=== PATIENT | male | born 1960 | race Caucasian/White ===

== ENCOUNTER 2025-08-14 17:27 | Inpatient (IN) | payer OTHER, SELFPAY ==
[2025-08-14] VITALS (11 sets, daily range): BP systolic 112–137; BP diastolic 78–89; PULSE 69–81; RESP 12–20; TEMP 36.4–37.1; O2SAT 94–99; BMI 28.3
--- NOTE | ~2025-08-14 | CT_ITS ---
CT brain wo con HISTORY:ascending paralysis COMPARISON: None. TECHNIQUE: Axial images were obtained of the head without intravenous contrast. FINDINGS: No acute intracranial hemorrhage, mass effect or midline shift. No extra-axial fluid collections. The calvarium is intact. Visualized paranasal sinuses and mastoid air cells are clear. IMPRESSION: No acute intracranial hemorrhage or extra axial fluid collections. All CT scans at this facility are performed using low dose modulation techniques as appropriate to perform exam including the following: automated exposure control; use of iterative reconstruction technique; adjustment of the mA and/or kV according to patient size (this includes techniques or standardized protocols for targeted exams where dose is matched to indication/reason for exam). Reviewed, dictated and finalized at location S. IMPRESSION: No acute intracranial hemorrhage or extra axial fluid collections. All CT scans at this facility are performed using low dose modulation techniqu es as appropriate to perform exam including the following: automated exposure c ontrol; use of iterative reconstruction technique; adjustment of the mA and/or kV according to patient size (this includes techniques or standardized protocol s for targeted exams where dose is matched to indication/reason for exam).
--- NOTE | ~2025-08-14 | XR_ITS ---
EXAMINATION: XR lumbar puncture diagnostic DATE: 08/17/2025 13:34 INDICATION: Numbness weakness and tingling. Assess for infection. TECHNIQUE: The procedure including the risks and benefits was discussed with the patient. Risks discussed included spinal headache, cerebrospinal fluid leak, bleeding, and infection. The patient understood the risks and agreed to proceed. A timeout was performed to verify the patient's name, date of , and procedure to be performed. The skin overlying the L2-L3 level was prepped and draped in usual sterile fashion. Subcutaneous 1% lidocaine was used for local anesthesia. A 22 gauge spinal needle was advanced under fluoroscopic guidance. The needle was removed and the entry site was cleaned and dressed. There were no immediate complications. A total of 2 fluoroscopic images and one crosstable lateral radiograph were obtained. The amount of fluoroscopy time used during this procedure was 0.2 minutes. Total DAP was 12.596 mGycm^2. There were no immediate complications. FINDINGS: Real-time fluoroscopy demonstrates the needle at the L2-L3 level. Opening pressure was 14 cm water. (Normal range is variably defined as 6-20 cm water and up to 25 cm water in obese patients. Pressure >25 cm water is one of the modified Dandy criteria for idiopathic intracranial hypertension). There was an initial subtle pinkish tinge to the initial couple millimeter of fluid with subsequently clear, colorless fluid suggesting traumatic tap. 16.5 mL of fluid was collected in 4 tubes. IMPRESSION: 1. Successful fluoro-guided lumbar puncture with normal opening pressure of 14 cm water. Reviewed, dictated and finalized at location A.
--- NOTE | ~2025-08-14 | MR_ITS ---
. EXAMINATION: MR thoracic spine wo con DATE: 08/15/2025 14:55 INDICATION: Upper and lower extremity weakness TECHNIQUE: Magnetic resonance imaging (MRI) of the thoracic spine was performed without intravenous contrast. Sagittal localizer T1-weighted FSE of the cervicothoracic spine was obtained. Thoracic spine sequences included sagittal T2-weighted FSE, sagittal T1-weighted SE, Sagittal T2-weighted FS FSE, and axial T2-weighted FSE. COMPARISON: None FINDINGS: Evaluation mildly limited by mild motion artifact on the sagittal sequences moderate to severe motion artifact on the axial sequences. Alignment is normal. Chronic appearing mild anterior wedging at T7. Remaining vertebral body heights are normal. T1 and T2 hyperintense hemangioma at L1 with characteristic appearance with thickened vertical trabecula evident on CT dated 03/01/2013. Additional smaller T1 and T2 hyperintense hemangioma at T7. No pathologic marrow replacing process. Mild multilevel disc height loss at T5-T6 through T8-T9. There is normal spinal cord signal. The conus terminates at L1-L2. The thoracic discs do not extend beyond the endplate margins. There is no central canal stenosis. There is multilevel thoracic facet osteoarthritis, severe at a few levels bilaterally in the lower cervical spine with contributes to moderate neural foraminal stenosis on the left at T7-T8 hand and the right at T11-T12. Or scattered additional mild neural foraminal stenosis at a few levels on the left and right. There is an approximately 2.5 cm T2 hyperintense nodule in the right lower lobe. IMPRESSION: 1. Mild thoracic spondylosis with no central canal stenosis. 2. Indeterminate 2.5 cm mass in the right lower lobe. Recommend chest CT for further evaluation. Reviewed, dictated and finalized at location A. IMPRESSION: 1. Mild thoracic spondylosis with no central canal stenosis. 2. Indeterminate 2.5 cm mass in the right lower lobe. Recommend chest CT for fu rther evaluation.
--- NOTE | ~2025-08-14 | MR_ITS ---
EXAMINATION: MR lumbar spine wo con DATE: 08/15/2025 14:53 INDICATION: Upper and lower extremity weakness, numbness and tingling TECHNIQUE: Magnetic resonance imaging (MRI) of the lumbar spine was performed without intravenous contrast. Sequences included sagittal T2-weighted FSE, sagittal T2-weighted FS FSE, sagittal T1-weighted FSE, axial T1-weighted FSE and axial T2-weighted FSE. COMPARISON: None FINDINGS: Evaluation moderately limited by varying degrees of motion artifact on all the cord sequences. 8 degrees lumbar dextrocurvature. Sagittal alignment is normal. Vertebral body heights are normal. T1 and T2 hyperintense hemangioma at L1. Mild fibrovascular degenerative endplate changes at the right side of the L1-L2 and L5-S1 disc spaces. Moderate disc height loss at L4-L5 and mild disc height loss at L2-L3, L3-L4 and L5-S1. The conus medullaris terminates at L1-L2. There is normal signal in the caudal spinal cord. Paravertebral soft tissues are unremarkable. The following disc levels are specifically discussed: T12-L1: The disc does not extend beyond the endplate margin. There is mild bilateral facet joint osteoarthritis. There is no neural foraminal stenosis. There is no central canal stenosis. L1-L2: Disc is minimally bulging. There is moderate bilateral facet joint osteoarthritis. There is mild bilateral neural foraminal stenosis. There is no central canal stenosis. L2-L3: Disc is mildly bulging. There is moderate left and severe right facet joint osteoarthritis. There is moderate bilateral neural foraminal stenosis. There is mild central canal stenosis. L3-L4: Disc is bulging. There is hypertrophy of the ligamentum flavum. There is moderate to severe bilateral facet joint osteoarthritis. There is moderate bilateral neural foraminal stenosis. There is severe central canal stenosis. L4-L5: Disc is bulging There is severe bilateral facet joint osteoarthritis. There is moderate bilateral neural foraminal stenosis. There is severe central canal stenosis. L5-S1: Disc is bulging. There is moderate left and severe right facet joint osteoarthritis. There is mild left and moderate right neural foraminal stenosis. There is moderate central canal stenosis. IMPRESSION: 1. Moderate lumbar spondylosis with suggestion of severe central canal stenosis at L3-L4 and L4-L5 assessment is however moderately limited by prominent motion artifact particularly on the axial sequences. Reviewed, dictated and finalized at location A. IMPRESSION: 1. Moderate lumbar spondylosis with suggestion of severe central canal stenosis at L3-L4 and L4-L5 assessment is however moderately limited by prominent motio n artifact particularly on the axial sequences.
--- NOTE | ~2025-08-14 | MR_ITS ---
EXAMINATION: MR cervical spine wo con DATE: 08/15/2025 14:56 INDICATION: Upper and lower extremity weakness, numbness and tingling TECHNIQUE: Magnetic resonance imaging (MRI) of the cervical spine was performed without intravenous contrast. Sequences included sagittal T2-weighted FSE, sagittal T2-weighted FS FSE, sagittal T1-weighted FSE, axial MERGE and axial T2- weighted FSE. COMPARISON: None FINDINGS: Evaluation moderately limited by motion artifact brain to some degree on all sequences including repeated sequences with varying from mild to severe. Straightening of the normal cervical lordosis. No spondylolisthesis. Vertebral body heights are normal. Mild disc height loss at C4-C5, C5-C6 and C6-C7 with multilevel facet degenerative endplate changes at C5-C6 and C6-C7. Marrow signal is otherwise unremarkable. There is focal increased cord signal at C5-C6 where there is severe central canal stenosis which will be further detailed below. Cervical soft tissues are unremarkable. The following disc levels are specifically discussed: C2-C3: The disc does not extend beyond the endplate margin. There is mild left uncovertebral joint osteoarthritis. There is moderate right and severe left facet joint osteoarthritis. There is mild neural foraminal stenosis. There is no central canal stenosis. C3-C4: Mild left foraminal zone disc protrusion. There is mild left and moderate right uncovertebral joint osteoarthritis. There is moderate left and severe right facet joint osteoarthritis. There is altered left and moderate right neural foraminal stenosis. There is no central canal stenosis. C4-C5: Disc is bulging. There is moderate left and severe right uncovertebral joint osteoarthritis. There is mild left and severe right facet joint osteoarthritis. There is mild left and moderate right neural foraminal stenosis. There is moderate central canal stenosis measuring 9 mm AP in the mid sagittal plane, indention of the right ventral surface of cord and near complete effacement of surrounding CSF signal. C5-C6: Disc is bulging, eccentric to the right. There is severe bilateral uncovertebral joint osteoarthritis. There is mild bilateral facet joint osteoarthritis. There is mild left and moderate right neural foraminal stenosis. There is severe central canal stenosis measuring 7 mm AP in the mid sagittal plane with effacement of the surrounding CSF signal. There is deep formation of the cord with compression of the right side of the cord which forms an acute angle at the lateral recess and with lateral bulging of the left side of the cord into the entrance to the left neural foramen. There is associated focal increased cord signal. C6-C7: Disc is bulging. There is moderate right and severe left uncovertebral joint osteoarthritis. There is moderate bilateral facet joint osteoarthritis. There is mild to moderate right and moderate left neural foraminal stenosis. There is moderate central canal stenosis measuring 8 mm AP in the mid sagittal plane with effacement of the majority the surrounding CSF signal. C7-T1: The disc does not extend beyond the endplate margin. There is no uncovertebral joint osteoarthritis. There is mild bilateral facet joint osteoarthritis. There is no neural foraminal stenosis. There is no central canal stenosis. IMPRESSION: 1. Mild to moderate cervical spondylosis most notable for disc bulge with severe central canal stenosis at C5-C6 with associated focal increased cord signal consistent with secondary myelopathy. Reviewed, dictated and finalized at location A. IMPRESSION: 1. Mild to moderate cervical spondylosis most notable for disc bulge with sever e central canal stenosis at C5-C6 with associated focal increased cord signal c onsistent with secondary myelopathy.
--- NOTE | ~2025-08-14 | MR_ITS ---
EXAMINATION: MRI SACRUM W/O CONTRAST DATE: 08/15/2025 14:55 INDICATION: Incontinence and bilateral upper and lower limb weakness, numbness and tingling TECHNIQUE: Magnetic resonance imaging (MRI) of the sacrum and coccyx was performed without intravenous contrast. Sequences included sagittal PD-weighted FSE; oblique axial T1-weighted FSE and T2-weighted FS FSE; oblique coronal T2- weighted FSE, T1-weighted FSE and T2-weighted FS FSE. COMPARISON: CT dated 03/01/2013 FINDINGS: Evaluation is significantly limited by varying degrees of motion artifact to secondary on all sequences including multiple repeated sequences. Moderate lower lumbar spondylosis. See separate lumbar spine MR for further detail. Bone marrow signal is unremarkable with no pathologic marrow replacing process. Moderate osteoarthritis at the bilateral sacroiliac joints. Mild to moderate osteoarthritis at the bilateral hip joints with prominent subarticular cystlike change at the anterosuperior left acetabulum and mild subarticular edema-like signal change at the anterosuperior right acetabulum. No abnormal masses or pathologically enlarged lymphadenopathy in the visualized pelvis. No free fluid in the pelvis. IMPRESSION: 1. Mild to moderate degenerative skeletal changes in the lower lumbar spine and at the bilateral hip and sacroiliac joints. Reviewed, dictated and finalized at location A.
--- NOTE | ~2025-08-14 | MR_ITS ---
EXAMINATION: MR brain/brain stem wo/w con DATE: 08/15/2025 14:52 INDICATION: Weakness, numbness and tingling TECHNIQUE: Magnetic resonance imaging (MRI) of the brain and brainstem was performed without and with 20 mL Multihance intravenous contrast. Sequences included sagittal and axial T1-weighted SE, axial diffusion-weighted FS SE, axial T2*-weighted GRE, axial T2-weighted FLAIR, and axial T2-weighted FSE. Postcontrast axial, sagittal and coronal T1-weighted SE was obtained. Apparent diffusion coefficient (ADC) maps were created. COMPARISON: None. FINDINGS: There are no areas of restricted diffusion to suggest acute infarction. No intracranial hemorrhage or abnormal intracranial mass lesion. There are a few scattered tiny foci of nonspecific increased T2-weighted signal intensity in the cerebral white matter, predominantly involving the deep and periventricular white matter which is well within normal limits for age and likely sequela of chronic small vessel ischemic disease. There are no intraparenchymal signal abnormalities seen on the other pulse sequences. The ventricles are symmetric and normal in size. There are no abnormal extra-axial fluid collections. Flow voids are seen in the cerebral arteries on the T2-weighted sequences consistent with their expected patency. Visualized orbits and soft tissues are unremarkable. Mild to moderate mucosal thickening the paranasal sinuses most prominent in the bilateral ethmoid sinuses. There are no areas of abnormal enhancement on the post contrast images. IMPRESSION: 1. Normal aging brain. No acute intracranial process or abnormally enhancing brain lesions. Reviewed, dictated and finalized at location A. IMPRESSION: 1. Normal aging brain. No acute intracranial process or abnormally enhancing br ain lesions.
--- NOTE | ~2025-08-14 | MR_ITS ---
EXAMINATION: MR cervical spine wo con DATE: 08/16/2025 12:10 INDICATION: Repeat assessment for bilateral upper and lower extremity weakness, numbness and tingling with motion artifact on MRI imaging from one day prior. TECHNIQUE: Magnetic resonance imaging (MRI) of the cervical spine was performed without intravenous contrast. Sequences included sagittal T2-weighted FSE, sagittal fluid sensitive FSE STIR, sagittal T1-weighted FSE, axial MERGE and axial T2-weighted FSE. COMPARISON: 08/15/2025 FINDINGS: There is a moderate to large amount of motion artifact on all sequences on the current study including multiple repeated sequences. This renders assessment on the current study significantly more limited than on the prior study. Of note there is increased signal between the C5 and C6 spinous processes as can also be seen on the prior study which is of indeterminate etiology or significance. No other findings on the current study contradictory to the previous noted findings but no significant new information provided due to the motion artifact. IMPRESSION: 1. Increased signal between the C5 and C6 spinous processes which was present but noted on the prior study. No other additional useful additional information provided by the current study over the prior study due to a greater degree of moderate to severe motion artifact on all sequences including multiple repeated sequences. Reviewed, dictated and finalized at location A. IMPRESSION: 1. Increased signal between the C5 and C6 spinous processes which was present b ut noted on the prior study. No other additional useful additional information provided by the current study over the prior study due to a greater degree of m oderate to severe motion artifact on all sequences including multiple repeated sequences.
--- NOTE | 2025-08-14 17:36 | PC.NURSE ---
Pt. states he is unable to stand for a weight.
--- NOTE | 2025-08-14 19:12 | ECG_ITS ---
Test Date: 2025-08-14 19:30:57 Measurements Intervals Humphrey Rate: 74 P: 49 MS: 184 QRS: 71 QRSD: 173 T: 44 QT: 412 QTc: 460 Interpretive Statements SINUS RHYTHM RIGHT BUNDLE BRANCH BLOCK BASELINE ARTIFACT- I, II, III, AVR, AVL, AVF, V3-V4 ABNORMAL ECG No previous ECG available for comparison Electronically Signed On 08-15-2025 05:08:51 CDT by Adolph Arevalo D.O.
--- NOTE | 2025-08-14 19:35 | PC.NURSE ---
pt states he was bitten by unknown bugs over a week ago. pt states he is now having bilateral leg paralysis due to bug bites all over his back. pt states he is now having leg twitches that happen every 23 seconds. pt stated popped bug bites on back that had yellow pus come out of them. pt stated he is not able to walk any longer. This RN asked pt what the rash was on his lower abdomen, pt stated I don't like hair on my body so I pluck each and every hair out of my stomach, i also shave my armpits.
[2025-08-14 19:39] LABS: Hematocrit 50.8 % (42.0-52.0); Hemoglobin 16.5 g/dL (14.0-18.0); Immature Granulocyte Percent A 0.2 % (0-0.5); Lymphocytes Absolute Auto 1.87 K/mm3 (0.9-3.2); Mean Corpuscular HGB Conc 32.5 g/dl (32-36); Mean Corpuscular Hemoglobin 30.7 pg (26-34); Mean Corpuscular Volume 94.6 fl (80-100); Nucleated Red Blood Cells Absolute Auto 0.000 K/mm3 (0.0-0.012); Nucleated Red Blood Cells Perc 0.0 % (0.0-0.2); Platelet Count Result 265 k/mm3 (150-375); Red Blood Count 5.37 M/mm3 (4.6-6.20); White Blood Count 9.7 K/mm3 (4.5-10.0)
[2025-08-14 19:51] LABS: Alanine Aminotransferase 36 U/L (6-50); Albumin Level 4.1 g/dL (3.5-5.1); Alkaline Phosphatase 83 U/L (38-126); Anion Gap 4 mmol/L (4-12); Aspartate Amino Transferase 44 U/L (17-59); Bilirubin,Total 0.8 mg/dL (0.2-1.3); Blood Urea Nitrogen 27 mg/dL (9-20); CRP 3.2 mg/dL (<1.0); Calcium 9.3 mg/dL (8.4-10.2); Carbon Dioxide 28 mmol/L (22-30); Chloride 106 mmol/L (98-107); Estimated CRCL calculation 85 ml/min; Estimated Glomerular Filt Rate > 60; Glucose 92 mg/dL (65-110); Magnesium 2.2 mg/dL (1.6-2.3); Potassium 4.2 mmol/L (3.4-5.0); Sodium 138 mmol/L (137-145); Total Protein 7.3 g/dL (6.3-8.2)
--- NOTE | 2025-08-14 19:54 | ED.SKABFB ---
HPI - Skin/Abscess/Foreign Bdy General Chief complaint: Skin/Abscess/Foreign Body Stated complaint: bit by something, whole body is numb Time Seen by Provider: 08/14/25 19:06 History of Present Illness HPI narrative: 65-year-old male presenting to the emergency department with weakness and numbness going from his toes up towards his back and progressively escalating. Patient states that he has had progressive weakness and difficulty walking. He has stumbled and fallen multiple times this past week and now having significant difficulty getting around. Patient states he feels like his legs are giving out on him and almost like weight now. Presents via walk-in triage needing a wheelchair to get around. States that approximately 2-3 weeks ago he was outside and found a tick on his thigh that he removed and felt like he did not get the full head removed so he went in with tweezers to trying get this out. He has also had some bug bites over his extremities prior to that and had a fever of unknown origin. No diarrheal illness. No upper respiratory infection recently. Complaining presently of weakness and trouble coordinating his legs as well as a mild headache. No traumatic injuries to the head or neck. No history of any cardiac anomalies, no prior strokes. Does not take any medications. Otherwise healthy according to the patient. Denies any recent new medications or supplements. Related Data Home Medications ?Medication ?Instructions ?Recorded ?Confirmed ?Last Taken ?Type No Home Medications 08/14/25 08/14/25 Unknown History Allergies Allergy/AdvReac Type Severity Reaction Status Date / Time poison cesar extract Allergy Severe Anaphylaxis Verified 08/14/25 23:02 Review of Systems Review of Systems: As reviewed above in HPI Exam Narrative: GENERAL: [Well-appearing, well-nourished, and in no acute distress.] HEAD: [Normocephalic, atraumatic.] EYES: [PERRLA and EOMI.] ENT: Nares clear, no rhinorrhea or epistaxis. Mucous membranes moist. NECK: Supple. CHEST: [Clear to auscultation. No respiratory distress.] HEART: [Regular rate and rhythm]. No murmur heard. [Normal peripheral pulses.] ABDOMEN: [Soft, nondistended], [nontender], [No rigidity or guarding] EXTREMITIES: Normal range of motion. [No edema.] SKIN: Warm, dry, no rash. NEURO: Ataxia noted in bilateral lower extremities. No ataxia in the arms. Strength in the arms is 5/5. Strength in the bilateral lower extremities is 4/5 bilaterally and symmetric. Decreased sensation up to the hip but no definite sensory level. Upper extremities with full sensation. No facial droop or asymmetry. Normal speech pattern. Extraocular movements are intact, pupils equal reactive. PSYCH: [Normal mood and affect.] Course Vital Signs Vital signs: Vital Signs Temperature 36.5 C 08/14/25 17:32 Pulse Rate 77 08/14/25 17:32 Respiratory Rate 16 08/14/25 17:32 Blood Pressure 137/86 08/14/25 17:32 Pulse Oximetry 96 08/14/25 17:32 Oxygen Delivery Room Air 08/14/25 17:32 Temperature 37.1 C 08/14/25 19:13 Pulse Rate 71 08/14/25 22:53 Respiratory Rate 16 08/14/25 22:53 Blood Pressure 124/82 08/14/25 22:53 Pulse Oximetry 98 08/14/25 22:53 Oxygen Delivery Room Air 08/14/25 19:13 Procedures Lumbar Puncture Lumbar Puncture #1: Lumbar Puncture Date: 08/14/25 Lumbar Puncture Time: 21:00 Time Out Performed: Yes Patient Position: right lateral decubitus Skin Prep: Povidone-Iodine 1% Anesthetic: lidocaine 1% Amount of anesthesia used (mL): 3 Spinal Needle Gauge: 20G Interspace Used: L3-L4 Spinal Fluid: unable to obtain Complications: unable to obtain CSF Additional Comments: Multiple attempts with several different spinal needles with appreciable apparent entry into the appropriate space without return of any CSF fluid. No bleeding. Attempted L4-L5 level and L3-L4 level without any success. No success. Patient did tolerate this well without any further neurological deficits or bleeding or any complication apparent. MDM - Skin/Abscess/Foreign Bdy MDM Narrative Medical decision making narrative: 65-year-old male presenting to the emergency department with weakness and numbness going from his toes up towards his back and progressively escalating. Patient states that he has had progressive weakness and difficulty walking. He has stumbled and fallen multiple times this past week and now having significant difficulty getting around. Patient states he feels like his legs are giving out on him and almost like weight now. Presents via walk-in triage needing a wheelchair to get around. States that approximately 2-3 weeks ago he was outside and found a tick on his thigh that he removed and felt like he did not get the full head removed so he went in with tweezers to trying get this out. He has also had some bug bites over his extremities prior to that and had a fever of unknown origin. No diarrheal illness. No upper respiratory infection recently. Complaining presently of weakness and trouble coordinating his legs as well as a mild headache. No traumatic injuries to the head or neck. No history of any cardiac anomalies, no prior strokes. Does not take any medications. Otherwise healthy according to the patient. Denies any recent new medications or supplements. Ataxia noted in bilateral lower extremities. No ataxia in the arms. Strength in the arms is 5/5. Strength in the bilateral lower extremities is 4/5 bilaterally and symmetric. Decreased sensation up to the hip but no definite sensory level. Upper extremities with full sensation. No facial droop or asymmetry. Normal speech pattern. Extraocular movements are intact, pupils equal reactive. Patient is hemodynamically stable but has obvious neurological findings on examination combined with his historical features with recent bug bites, tick exposure and febrile illness of unknown etiology differential is broad but does include Lyme disease, gout MRSA syndrome, intra cranial pathology such as stroke, electrolyte abnormalities, dehydration, rhabdomyolysis. Broad workup ordered this time including basic laboratory studies, EKG, CT of the head, Lyme serology and LP studies. Failed to obtain LP after multiple attempts. Patient tolerated well without any complication otherwise. Remains hemodynamically stable. Laboratory studies so far unremarkable. Given patient's acute neurological deficits with concern for Guillain-[place] versus tick-borne illness I discussed the case with the on-call neurologist Dr. Sheila RUCKER. He recommended I start empiric antibiotics and treatment for Lyme and so doxycycline was ordered at this time. Discussed if we should empirically treat for given her a or other potential causes with steroids, IVIG or other treatments and told me to obtain LP this morning with IR and then proceed with treatments based on results rather than empiric starting medications. He recommended I admit to the ICU for respiratory monitoring given progression nature of his neurological function. No current respiratory complaints, dyspnea, heavy breathing or any hypoxemia. Spoke to the jail manager Dr. Keane and the hospitalist Dr. Miles who accepted the patient to the ICU at this time. Medical Records Attestation: I reviewed the patient's medical records. Lab Data Attestation: I reviewed the patient's lab results. 08/14/25 19:32 08/14/25 19:32 Labs: Lab Results 08/14/25 Range/Units 19:32 WBC 9.7 (4.5-10.0) K/mm3 RBC 5.37 (4.6-6.20) M/mm3 Hgb 16.5 (14.0-18.0) g/dL Hct 50.8 (42.0-52.0) % MCV 94.6 (80-100) fl MCH 30.7 (26-34) pg MCHC 32.5 (32-36) g/dl RDW 14.3 (11.5-14.5) % Plt Count 265 (150-375) k/mm3 MPV 10.6 H (7.4-10.4) fl Immature Gran % (Auto) 0.2 (0-0.5) % Neut % (Auto) 66.3 (45.5-73.1) % Lymph % (Auto) 19.4 (18.3-44.2) % Glenn % (Auto) 8.4 (2.6-8.5) % Eos % (Auto) 5.3 H (0-4.4) % Baso % (Auto) 0.4 (0.2-1.2) % Lymph # (Auto) 1.87 (0.9-3.2) K/mm3 Glenn # (Auto) 0.8 H (0.1-0.6) K/mm3 Eos # (Auto) 0.5 H (0-0.3) K/mm3 Baso # (Auto) 0.0 (0.0-0.1) K/mm3 Abs Immat Gran (auto) 0.02 (0.00-0.031) K/mm3 Absolute Neuts (auto) 6.4 (1.3-6.7) K/mm3 Absolute Nucleated RBC 0.000 (0.0-0.012) K/mm3 Nucleated RBC % 0.0 (0.0-0.2) % ESR 3 (0-20) mm/hr Sodium 138 (137-145) mmol/L Potassium 4.2 (3.4-5.0) mmol/L Chloride 106 (98-107) mmol/L Carbon Dioxide 28 (22-30) mmol/L Anion Gap 4 (4-12) mmol/L BUN 27 H (9-20) mg/dL Creatinine 0.83 (0.7-1.3) mg/dL Estim Creat Clear Calc 85 ml/min Estimated GFR > 60 (59 - ) Glucose 92 (65-110) mg/dL Calcium 9.3 (8.4-10.2) mg/dL Magnesium 2.2 (1.6-2.3) mg/dL Total Bilirubin 0.8 (0.2-1.3) mg/dL AST 44 (17-59) U/L ALT 36 (6-50) U/L Alkaline Phosphatase 83 (38-126) U/L Total Creatine Kinase 389 H (55-170) U/L C-Reactive Protein 3.2 H (<1.0) mg/dL Total Protein 7.3 (6.3-8.2) g/dL Albumin 4.1 (3.5-5.1) g/dL Lyme IgG 18 kDa Band Pending Lyme IgG 23 kDa Band Pending Lyme IgG 28 kDa Band Pending Lyme IgG 30 kDa Band Pending Lyme IgG 39 kDa Band Pending Lyme IgG 41 kDa Band Pending Lyme IgG 45 kDa Band Pending Lyme IgG 58 kDa Band Pending Lyme IgG 66 kDa Band Pending Lyme IgG 93 kDa Band Pending Lyme IgG Ab (Immblot) Pending Lyme IgM Ab (Immblot) Pending Lyme IgM 23 kDa Band Pending Lyme IgM 39 kDa Band Pending Lyme IgM 41 kDa Band Pending Discharge Plan Discharge Clinical Impression: Ascending paralysis, Tick bite, Ataxia of both legs Patient Disposition: Still a Patient Condition: Stable
[2025-08-14 20:00] LABS: Creatine Kinase 389 U/L (55-170)
[2025-08-14] MEDS: DOXYCYCLINE IV 100 MG in SODIUM CHLORIDE 0.9% IV 100 ML IVPB (21:46)
[2025-08-15] VITALS (19 sets, daily range): BP systolic 115–168; BP diastolic 74–109; PULSE 59–94; RESP 12–18; TEMP 36.3–36.9; O2SAT 90–99
--- NOTE | 2025-08-15 00:47 | PM.IMHP ---
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 The symptoms started 3 days prior to admission which were acute in onset and severe but the patient was afraid to come into the hospital. His girlfriend is at bedside who helps coordinate history. The patient works around the house a lot, he has been working in the yard with fences recently, he saw a tick on his right thigh 2 weeks prior to admission. He pulled it out but the head was left in his skin. He took a nail file and dug the head of the tick out. Since then, there has been a small rash at the site of the bite. 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 He was falling and getting scratches everywhere, has bug bites everywhere. He is unsure where the weakness or his other symptoms started but eventually it became diffuse. He told ER physician it started in his toes and went upward. He was weak in his legs, his hips, arms. He started to have numbness everywhere, and then tingling and sharp pains all over. Patient has no known prior history, does not take medications. Denies fever, change in vision, shortness of breath, chest pain, nausea or vomiting, abdominal pain, diarrhea, syncope. ER evaluation demonstrated ataxia of bilateral lower extremities. No ataxia in the upper extremities but patient did report he had clumsy fingers. Strength in the arms 5/5, strength in bilateral lower extremities 4-5 bilaterally and symmetric. Decreased sensation up to the hip but no definite sensory level of change. Upper extremities full sensation. No facial droop. Normal speech. Extraocular movements intact. ER evaluation demonstrates a hemodynamically stable male. Afebrile. WBC 9.7, hemoglobin 16.5, ESR 3, platelets 265, BUN 27, serum creatinine 0.83, total CK 389, CRP 3.2 nasal MRSA negative, Lyme serology obtained. CT head without contrast with no acute findings. Administered doxycycline 100 mg IV x1. Fail to obtain LP after multiple attempts. Graduate Studies Dean notify for admission to the ICU. Neurologist contacted from the ER. Recommended LP with radiology in the morning, no administration of IVIG or other treatments to treat possible Guillain-[place] syndrome. Review of Systems Review of Systems: All systems reviewed & are unremarkable except as noted in HPI and below (Subjective) [facility] Family History Family History (Updated 08/14/25 @ 23:55 by Anup Lin RN) Father Acute myocardial infarction Social History Social History Smoking packs per day: 1 Smoking cigarettes per day: 20.0 Smoking status: Current every day smoker Tobacco type: cigarettes Alcohol intake: former Drinks per week: 0 Substance use: current Substance use type: marijuana Last use: 08/13/2025 Lack of Transportation: No Lack of Food: Never True Current Housing: I Have Housing Concerned About Future Housing: No Difficulty Paying Gas/Electric Bills: No Difficulty Paying for Meds: No Currently Unemployed: YES Education: Decline to Answer Difficulty w/ Childcare or Family Care: No Spiritual care concerns: No Meds Home Medications and Allergies Home Medications ?Medication ?Instructions ?Recorded ?Confirmed ?Type No Home Medications 08/14/25 08/14/25 History Allergies Allergy/AdvReac Type Severity Reaction Status Date / Time poison cesar extract Allergy Severe Anaphylaxis Verified 08/14/25 23:53 Vital Signs Vital Signs - 24 hr 08/14/25 17:32 08/14/25 19:13 08/14/25 21:23 Temperature 97.7 F 98.7 F Pulse Rate 77 78 72 Respiratory Rate 16 14 20 Blood Pressure 137/86 134/89 120/78 Pulse Oximetry 96 99 95 Oxygen Delivery Room Air Room Air 08/14/25 21:30 08/14/25 21:31 08/14/25 21:45 Temperature Pulse Rate 75 70 71 Respiratory Rate 12 13 16 Blood Pressure 114/80 128/87 125/87 Pulse Oximetry 94 95 95 Oxygen Delivery 08/14/25 22:00 08/14/25 22:15 08/14/25 22:45 Temperature Pulse Rate 69 74 Respiratory Rate 20 14 Blood Pressure 118/78 112/81 Pulse Oximetry 97 99 95 Oxygen Delivery Room Air 08/14/25 22:53 08/14/25 23:00 08/15/25 00:00 Temperature 97.6 F 97.6 F Pulse Rate 71 81 86 Respiratory Rate 16 19 17 Blood Pressure 124/82 130/82 115/81 Pulse Oximetry 98 94 92 Oxygen Delivery 08/15/25 00:00 Temperature Pulse Rate Respiratory Rate Blood Pressure Pulse Oximetry 92 Oxygen Delivery Room Air Exam Const: General: comfortable and no acute distress Other: A&O x4, pleasant and cooperative HENMT: Mouth: Yes moist mucous membranes Eyes: EOM: EOMs intact bilaterally Other: anisocoria R>L, R iris asymmetric. Both pupils reacted to light. Resp: Effort & Inspection: normal respiratory effort Auscultation: clear to auscultation bilaterally Cardio: Rate: regular rate Rhythm: regular rhythm Heart sounds: no murmurs GI: Inspection: non-distended GI Palp: Yes Soft to palpation and No Tenderness to palpation present (GI) Auscultation: normal bowel sounds : General: Yes bladder normal to palpation Skin: Other: Multiple linear scratch espinoza diffusely, healing. Patient reports this is from falling and getting scratched on fences. Papular rash on the buttocks. Right thigh with 2 small areas of erythema surrounding 2 healing bite espinoza. Neuro: Other: Deep tendon reflexes 2+, normal speech. Strength 4/5 at the hips bilaterally flexion. 5/5 strength at the knees and ankles bilaterally. Bilateral upper arms 5/5 strength. Sensation equal symmetrically to light touch and pinprick and intact. Vascular exam intact. All 4 extremities without ataxia. Tongue and uvula midline. No facial droop. Speech normal. Extrem: Other: Trace pitting edema bilateral lower extremities below the knees. Psych: Mental Status: mental status grossly normal H&P: Results Labs Labs: Short CBC 08/14/25 Range/Units 19:32 WBC 9.7 (4.5-10.0) K/mm3 Hgb 16.5 (14.0-18.0) g/dL Hct 50.8 (42.0-52.0) % Plt Count 265 (150-375) k/mm3 [facility] 08/14/25 19:32 Sodium 138 Potassium 4.2 Chloride 106 Carbon Dioxide 28 BUN 27 H Creatinine 0.83 Glucose 92 Calcium 9.3 Cardiac Enzymes 08/14/25 Range/Units 19:32 Total Creatine Kinase 389 H (55-170) U/L Liver Function 08/14/25 Range/Units 19:32 Total Bilirubin 0.8 (0.2-1.3) mg/dL AST 44 (17-59) U/L ALT 36 (6-50) U/L Alkaline Phosphatase 83 (38-126) U/L Albumin 4.1 (3.5-5.1) g/dL Assessment and Plan Assessment and plan (1) Tick bite: Code(s): W57.XXXA - Bitten or stung by nonvenomous insect and other nonvenomous arthropods, initial encounter Status: Acute (2) Neurological muscle weakness: Code(s): M62.81 - Muscle weakness (generalized) Status: Acute (3) Akathisia: Code(s): G25.71 - Drug induced akathisia Status: Acute (4) Complaint of paresthesia: Code(s): R20.2 - Paresthesia of skin Status: Acute Plan 65-year-old male with PMH tobacco and marijuana abuse, bilateral cataract surgery 2010 with 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 The symptoms started 3 days prior to admission which were acute in onset and severe but the patient was afraid to come into the hospital. His girlfriend is at bedside who helps coordinate history. The patient works around the house a lot, he has been working in the yard with fences recently, he saw a tick on his right thigh 2 weeks prior to admission. He pulled it out but the head was left in his skin. He took a nail file and dug the head of the tick out. Since then, there has been a small rash at the site of the bite. 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 He was falling and getting scratches everywhere, has bug bites everywhere. He is unsure where the weakness or his other symptoms started but eventually it became diffuse. He told ER physician it started in his toes and went upward. He was weak in his legs, his hips, arms. He started to have numbness everywhere, and then tingling and sharp pains all over. Patient has no known prior history, does not take medications. Denies fever, change in vision, shortness of breath, chest pain, nausea or vomiting, abdominal pain, diarrhea, syncope. ER evaluation demonstrated ataxia of bilateral lower extremities. No ataxia in the upper extremities but patient did report he had clumsy fingers. Strength in the arms 5/5, strength in bilateral lower extremities 4-5 bilaterally and symmetric. Decreased sensation up to the hip but no definite sensory level of change. Upper extremities full sensation. No facial droop. Normal speech. Extraocular movements intact. ER evaluation demonstrates a hemodynamically stable male. Afebrile. WBC 9.7, hemoglobin 16.5, ESR 3, platelets 265, BUN 27, serum creatinine 0.83, total CK 389, CRP 3.2 nasal MRSA negative, Lyme serology obtained. CT head without contrast with no acute findings. Administered doxycycline 100 mg IV x1. Fail to obtain LP after multiple attempts. Graduate Studies Dean notify for admission to the ICU. Neurologist contacted from the ER. Recommended LP with radiology in the morning, no administration of IVIG or other treatments to treat possible Guillain-[place] syndrome. ----- Upon examining the patient in room ICU 9 he is elated that his symptoms have been rapidly improving since receiving antibiotic in the ER. He now denies any numbness, no more sharp/pinprick sensation. He believes his strength has greatly improved. He has 4/5 strength on flexion at the hips bilaterally and otherwise 5/5 strength. Bowel sounds present. No respiratory compromise. Based on the patient's rapid improvement after doxycycline would consider his symptoms to be related to tick-borne illness. Admission to ICU with telemetry and close monitoring of respiratory status. Monitor bowel movements. Neurologic checks q.2 hours. EKG on admission demonstrates sinus rhythm, QTC 460, right bundle branch block. Repeat EKG is needed. Graduate Studies Dean consultation. Neurology consultation. Pending lumbar puncture. NPO diet at this time. Normal saline at 83 cc/hour. Continue doxycycline 100 mg p.o. b.i.d.. Pending Lyme serologies. ----- Patient wishes to be full code. NPO. Accu-Cheks q.6 hours with hypoglycemia protocol Normal saline infusion. SCDs pending lumbar puncture. Fall precautions/ambulate with assistance. PT/OT evaluation and treatment. Prior to admission the patient lives at home and was independent without use of assistive devices for ambulation. Patient smokes marijuana, tobacco user. Counseling provided for greater than 3 minutes. Nicotine patch if needed. Denies alcohol use, recreational drug use. Hospitalist MIPS Advance Care Plan I have confirmed that the patient's Advanced Care Plan is present, code status is documented, or surrogate decision maker is listed in patient medical record.: Yes Medication Reconciliation I have utilized all available resources to obtain, update and review the patients current medications (includes all prescriptions, OTC, herbals, cannabis, and nutritional supplements).: Yes
[2025-08-15 01:27] LABS: MRSA (PCR) NOT DETECTED (NOT DETECTE)
[2025-08-15] MEDS: SODIUM CHLORIDE 0.9% IV 1,000 ML 83 ML IV CONT (02:37)
[2025-08-15 04:06] LABS: Hematocrit 47.0 % (42.0-52.0); Hemoglobin 15.2 g/dL (14.0-18.0); Immature Granulocyte Percent A 0.4 % (0-0.5); Lymphocytes Absolute Auto 1.93 K/mm3 (0.9-3.2); Mean Corpuscular HGB Conc 32.3 g/dl (32-36); Mean Corpuscular Hemoglobin 30.9 pg (26-34); Mean Corpuscular Volume 95.5 fl (80-100); Nucleated Red Blood Cells Absolute Auto 0.000 K/mm3 (0.0-0.012); Nucleated Red Blood Cells Perc 0.0 % (0.0-0.2); Platelet Count Result 241 k/mm3 (150-375); Red Blood Count 4.92 M/mm3 (4.6-6.20); White Blood Count 8.0 K/mm3 (4.5-10.0)
[2025-08-15 04:22] LABS: Alanine Aminotransferase 29 U/L (6-50); Albumin Level 3.4 g/dL (3.5-5.1); Alkaline Phosphatase 73 U/L (38-126); Anion Gap 4 mmol/L (4-12); Aspartate Amino Transferase 37 U/L (17-59); Bilirubin,Total 0.9 mg/dL (0.2-1.3); Blood Urea Nitrogen 26 mg/dL (9-20); CRP 2.3 mg/dL (<1.0); Calcium 8.5 mg/dL (8.4-10.2); Carbon Dioxide 25 mmol/L (22-30); Chloride 108 mmol/L (98-107); Estimated CRCL calculation 87 ml/min; Estimated Glomerular Filt Rate > 60; Glucose 89 mg/dL (65-110); Magnesium 2.1 mg/dL (1.6-2.3); Potassium 3.8 mmol/L (3.4-5.0); Sodium 137 mmol/L (137-145); Total Protein 6.2 g/dL (6.3-8.2)
[2025-08-15 08:26] LABS: INR 1.0; Prothrombin Time 13.6 Seconds (11.1-14.7)
[2025-08-15 08:27] LABS: Partial Thromboplastin Time 27.7 Seconds (22.3-36.8)
--- NOTE | 2025-08-15 09:10 | P.PNIM_ITS ---
Progress Note: A&P Assessment and Plan (1) Tick bite: Code(s): W57.XXXA - Bitten or stung by nonvenomous insect and other nonvenomous arthropods, initial encounter Status: Acute Assessment and Plan: Patient is currently on doxycycline Will consider ceftriaxone 2 g after LP Reviewed MRI of brain which shows no significant abnormality MRI of cervical:Mild to moderate cervical spondylosis most notable for disc bulge with severe central canal stenosis at C5-C6 with associated focal increased cord signal consistent with secondary myelopathy. MRI of thoracic:1. Mild thoracic spondylosis with no central canal stenosis. 2. Indeterminate 2.5 cm mass in the right lower lobe. Recommend chest CT for further evaluation. MRI of lumbar:1. Moderate lumbar spondylosis with suggestion of severe central canal stenosis at L3-L4 and L4-L5 assessment is however moderately limited by prominent motion artifact particularly on the axial sequences. MRI of sacrum/coccyx:1. Mild to moderate degenerative skeletal changes in the lower lumbar spine and at the bilateral hip and sacroiliac joints. Differential diagnosis include Lyme disease, GBS, spinal stenosis,myelitis Appreciate neurosurgery recommendation Surgery following (2) Neurological muscle weakness: Code(s): M62.81 - Muscle weakness (generalized) Status: Acute Assessment and Plan: Same as above (3) Akathisia: Code(s): G25.71 - Drug induced akathisia Status: Acute Assessment and Plan: Same as above (4) Complaint of paresthesia: Code(s): R20.2 - Paresthesia of skin Status: Acute Assessment and Plan: Same as above Subjective Date/time seen: 08/15/25 09:10 Interval history: Patient reports that approximately 1 week or 2 weeks ago, he had a tick bite on his thigh and back while working in the garden. Patient removed the tick with the tweezers, but was able to do 20 times the tick's body weight, not the head. He also had some bug bites on his extremities. Later, the patient had lower extremity weakness, which escalated to the point of using a walker. Patient has evidence of finger villarreal, as evidenced by loss of touch sensation. He had a period of fecal and urinary incontinence, although currently he has control. In the ED, several attempts at LP failed. Patient underwent MRI of the brain, cervical, thoracic, lumbar, and sacral with and without contrast. During the MRI, it is difficult to obtain images due to his severe muscle spasm. An interventional radiologist requested neurosurgical assistance to get an LP. The architectural engineering teacher spoke with the neurosurgeon. Of note patient reports that he never seen a physician for at least 4-5 years. Exam Const: General: comfortable and no acute distress Other: A&O x4, pleasant and cooperative HENMT: Mouth: Yes moist mucous membranes Eyes: EOM: EOMs intact bilaterally Other: anisocoria R>L, R iris asymmetric. Both pupils reacted to light. Resp: Effort & Inspection: normal respiratory effort Auscultation: clear to auscultation bilaterally Cardio: Rate: regular rate Rhythm: regular rhythm Heart sounds: no murmurs GI: Inspection: non-distended Auscultation: normal bowel sounds : General: Yes bladder normal to palpation Skin: Other: Multiple linear scratch esipnoza diffusely, healing. Patient reports this is from falling and getting scratched on fences. Papular rash on the buttocks. Right thigh with 2 small areas of erythema surrounding 2 healing bite espinoza. Neuro: Other: Deep tendon reflexes 2+, normal speech. Strength 4/5 at the hips bilaterally flexion. 5/5 strength at the knees and ankles bilaterally. Bilateral upper arms 5/5 strength. Sensation equal symmetrically to light touch and pinprick and intact. Vascular exam intact. All 4 extremities without ataxia. Tongue and uvula midline. No facial droop. Speech normal. Extrem: Other: Trace pitting edema bilateral lower extremities below the knees. Psych: Mental Status: mental status grossly normal Objective Data Vital Signs Vital Signs: Vital Signs - 24 hr 08/14/25 17:32 08/14/25 19:13 08/14/25 21:23 Temperature 97.7 F 98.7 F Pulse Rate 77 78 72 Respiratory Rate 16 14 20 Blood Pressure 137/86 134/89 120/78 Pulse Oximetry 96 99 95 Oxygen Delivery Room Air Room Air Oxygen Flow Rate 08/14/25 21:30 08/14/25 21:31 08/14/25 21:45 Temperature Pulse Rate 75 70 71 Respiratory Rate 12 13 16 Blood Pressure 114/80 128/87 125/87 Pulse Oximetry 94 95 95 Oxygen Delivery Oxygen Flow Rate 08/14/25 22:00 08/14/25 22:15 08/14/25 22:45 Temperature Pulse Rate 69 74 Respiratory Rate 20 14 Blood Pressure 118/78 112/81 Pulse Oximetry 97 99 95 Oxygen Delivery Room Air Oxygen Flow Rate 08/14/25 22:53 08/14/25 23:00 08/15/25 00:00 Temperature 97.6 F 97.6 F Pulse Rate 71 81 86 Respiratory Rate 16 19 17 Blood Pressure 124/82 130/82 115/81 Pulse Oximetry 98 94 92 Oxygen Delivery Oxygen Flow Rate 08/15/25 00:00 08/15/25 00:00 08/15/25 00:45 Temperature Pulse Rate 82 Respiratory Rate Blood Pressure Pulse Oximetry 92 94 Oxygen Delivery Room Air Nasal Cannula Oxygen Flow Rate 2 08/15/25 01:00 08/15/25 02:00 08/15/25 02:00 Temperature 98.4 F Pulse Rate 84 83 83 Respiratory Rate 14 13 Blood Pressure 117/74 134/84 Pulse Oximetry 92 91 Oxygen Delivery Oxygen Flow Rate 08/15/25 03:00 08/15/25 04:00 08/15/25 04:00 Temperature 97.6 F Pulse Rate 80 78 Respiratory Rate 14 17 Blood Pressure 127/81 142/88 H Pulse Oximetry 93 94 94 Oxygen Delivery Nasal Cannula Oxygen Flow Rate 2 08/15/25 04:00 08/15/25 05:00 08/15/25 06:00 Temperature 97.8 F Pulse Rate 80 78 70 Respiratory Rate 14 12 Blood Pressure 152/109 H 153/100 H Pulse Oximetry 90 94 Oxygen Delivery Oxygen Flow Rate 08/15/25 06:00 08/15/25 08:13 Temperature Pulse Rate 70 Respiratory Rate Blood Pressure Pulse Oximetry 97 Oxygen Delivery Room Air Oxygen Flow Rate Intake/Output Intake/Output: Intake & Output 08/12/25 08/13/25 08/14/25 08/15/25 23:59 23:59 23:59 23:59 Intake Total 100 0 Output Total 0 Balance 100 0 Meds/Results Medications: Active Medications Generic Name Dose Route Start Last Admin Trade Name Freq PRN Reason Stop Dose Admin Acetaminophen 650 mg 08/14/25 21:36 Acetaminophen 325 Mg Tablet PO Q4H PRN Mild Pain (1-3) or Fever Dextrose 12.5 gm 08/15/25 01:52 Dextrose 50% 25 Gm/50 Ml Syringe IV PUSH PRN PRN Hypoglycemia Protocol Doxycycline Hyclate 100 mg 08/15/25 09:00 Doxycycline Hyclate 100 Mg Tablet PO Q12HR [facility] Glucose 15 gm 08/15/25 01:52 Glucose Oral Gel 15 Gm Of Glucse In 37.5 Gm Tube PO PRN PRN Hypoglycemia Protocol Dextrose 1,000 mls @ 100 mls/hr 08/15/25 01:52 Dextrose 5% 1,000 Ml IVPB PRN PRN Hypoglycemia Protocol Sodium Chloride 1,000 mls @ 83 mls/hr 08/15/25 01:55 08/15/25 02:37 Normal Saline Iv IV CONT 83 mls/hr .Q12H3M STEPHANIE Administration Radiology Results: ITS Impressions Head CT 08/14/25 20:25 IMPRESSION: No acute intracranial hemorrhage or extra axial fluid collections. All CT scans at this facility are performed using low dose modulation techniques as appropriate to perform exam including the following: automated exposure control; use of iterative reconstruction technique; adjustment of the mA and/or kV according to patient size (this includes techniques or standardized protocols for targeted exams where dose is matched to indication/reason for exam). Labs Labs: Laboratory Results - last 24 hr 08/14/25 08/15/25 08/15/25 19:32 00:02 04:00 WBC 9.7 8.0 RBC 5.37 4.92 Hgb 16.5 15.2 Hct 50.8 47.0 MCV 94.6 95.5 MCH 30.7 30.9 MCHC 32.5 32.3 RDW 14.3 14.3 Plt Count 265 241 MPV 10.6 H 10.5 H Immature Gran % (Auto) 0.2 0.4 Neut % (Auto) 66.3 58.4 Lymph % (Auto) 19.4 24.2 [place] % (Auto) 8.4 10.1 H Eos % (Auto) 5.3 H 6.4 H Baso % (Auto) 0.4 0.5 Lymph # (Auto) 1.87 1.93 [place] # (Auto) 0.8 H 0.8 H Eos # (Auto) 0.5 H 0.5 H Baso # (Auto) 0.0 0.0 Abs Immat Gran (auto) 0.02 0.03 Absolute Neuts (auto) 6.4 4.7 Absolute Nucleated RBC 0.000 0.000 Nucleated RBC % 0.0 0.0 ESR 3 10 PT INR APTT Sodium 138 137 Potassium 4.2 3.8 Chloride 106 108 H Carbon Dioxide 28 25 Anion Gap 4 4 BUN 27 H 26 H Creatinine 0.83 0.81 Estim Creat Clear Calc 85 87 Estimated GFR > 60 > 60 Glucose 92 89 Calcium 9.3 8.5 Phosphorus 3.1 Magnesium 2.2 2.1 Total Bilirubin 0.8 0.9 AST 44 37 ALT 36 29 Alkaline Phosphatase 83 73 Total Creatine Kinase 389 H C-Reactive Protein 3.2 H 2.3 H Total Protein 7.3 6.2 L Albumin 4.1 3.4 L Nasal MRSA (PCR) Not detected 08/15/25 07:52 WBC RBC Hgb Hct MCV MCH MCHC RDW Plt Count MPV Immature Gran % (Auto) Neut % (Auto) Lymph % (Auto) [place] % (Auto) Eos % (Auto) Baso % (Auto) Lymph # (Auto) [place] # (Auto) Eos # (Auto) Baso # (Auto) Abs Immat Gran (auto) Absolute Neuts (auto) Absolute Nucleated RBC Nucleated RBC % ESR PT 13.6 INR 1.0 APTT 27.7 Sodium Potassium Chloride Carbon Dioxide Anion Gap BUN Creatinine Estim Creat Clear Calc Estimated GFR Glucose Calcium Phosphorus Magnesium Total Bilirubin AST ALT Alkaline Phosphatase Total Creatine Kinase C-Reactive Protein Total Protein Albumin Nasal MRSA (PCR) Hospitalist MIPS Advance Care Plan I have confirmed that the patient's Advanced Care Plan is present, code status is documented, or surrogate decision maker is listed in patient medical record.: Yes Medication Reconciliation I have utilized all available resources to obtain, update and review the patients current medications (includes all prescriptions, OTC, herbals, cannabis, and nutritional supplements).: Yes
--- NOTE | 2025-08-15 09:52 | P.CONIN_ITS ---
Assessment and Plan Assessment and plan (1) Neurological muscle weakness: Code(s): M62.81 - Muscle weakness (generalized) Status: Acute Assessment and Plan: Patient presented with neurological muscle weakness, stated started from his lower extremities, went up to his acute upper extremities. No respiratory issues. He did have incontinence of urine and stool prior to admission to the hospital. ER physician was unsuccessful at LP -patient has a recent history of tick bite, 2-3 weeks prior to admission -08/14: Started on doxycycline -appreciate Neurology evaluation recommendation, -given history of incontinence to stool and urine, decreased DTRs on the upper extremities. Neurology recommended obtaining the full spinal cord MRI from cervical to the sacrum. -if spinal MRI is negative will obtain LP by Interventional Radiology -discussed with IR, Dr. Reynoso agreed with MRI, and will perform LP if MRI is negative 08/14/2025: CT scan of the brain with no acute intracranial hemorrhage or extra axial fluid collection. (2) Complaint of paresthesia: Code(s): R20.2 - Paresthesia of skin Status: Acute Assessment and Plan: As above (3) Tick bite: Code(s): W57.XXXA - Bitten or stung by nonvenomous insect and other nonvenomous arthropods, initial encounter Status: Acute Assessment and Plan: Continue doxycycline (4) Incontinence: Code(s): R32 - Unspecified urinary incontinence Status: Acute Assessment and Plan: Incontinence of urine and stool prior to admission to the hospital -will obtain full spine MRI Plan DVT prophylaxis: SCDs, hold chemoprophylaxis for possible lumbar puncture Stress ulcer prophylaxis: Not indicated Nutrition: NPO for now, once MRI Na a ER done may start diet Code Status: Full code Critical Care Time Spent: 49 minutes Due to a high probability of clinically significant, life threatening deterioration, the patient required my highest level of preparedness to intervene emergently and I personally spent this critical care time directly and personally managing the patient. This critical care time included obtaining a history; examining the patient; pulse oximetry; ordering and review of studies; arranging urgent treatment with development of a management plan; evaluation of patient's response to treatment; frequent reassessment; and discussions with other providers. It was exclusive of separately billable procedures and treating other patients and teaching time. Please see Assessment and Plan section and the rest of the note for further information on patient assessment and treatment This dictation may have been done utilizing a voice recognition system. Attempts have been made to correct errors. However, there may be uncorrected grammatical, spelling, and recognitions errors present. Casing Inspector Consult Note Consult date: 08/15/25 Reason for consult: Take by, generalized weakness, descending paralysis, nausea numbness, tingling, falls, burnt his fingers on the left hand HPI: Bret Esparza is a 65 year old male with no significant past medical history except for tobacco use, 1 pack per day for many years, daily marijuana, bilateral cataracts surgery in 2010 with chronic anisocoria, right pupil greater than left. Presented the ED had [facility] on 08/14/2025 with complains of generalized weakness, imbalance, multiple falls, ataxia, numbness and tingling in his lower and upper extremities for almost a week prior to admission. He stated that he had a tick bite approximately 2-3 weeks prior to admission while he was working in the yd. The take was on his thigh, he was able to remove but felt that he did not get the full head out. So he got the head out using a set of tweezers. Patient also reports some bug bites on his extremities. No history of upper respiratory tract infection, or diarrhea, abdominal pain, vomiting. Patient does not take any medications at home. In the ER patient was noted to have ataxia in the lower extremities but not in the arms. Strength in the arms of 5/5. Strength in the bilateral lower extremities 4/5 and symmetric. Sensations were decreased up to the hip. Upper extremities with full sensation. No facial droop or asymmetry. Normal speech. Extraocular eye movements were intact, pupils were equal and reactive. ER physician attempted LP but was unsuccessful. He was hemodynamically stable, ER physician discussed with , neurologist, recommended getting LP by IR before getting any steroids or IVIG. Neurology wants to confirm GB syndrome prior to treatment. Patient was started on doxycycline for possible Lyme disease/tick-borne disease. Patient was transferred to the ICU for observation and to monitor respiratory status. Patient seen examined this morning in the ICU, is awake, alert, oriented. He states his numbness and tingling in his arms and legs have improved significantly. Strength 5/5 in upper extremities, 4/5 in lower extremities, sensations are intact in all extremities. Patient was bit by take on the right upper thigh. He has multiple bug bites, on his lower extremities. He also has a maculopapular rash with scabs on his abdomen. Denies any shortness of breath, chest pain, drooling, abdominal pain, nausea, vomiting, diarrhea. Does smoke 1 packet of cigarettes per day and also does smoke weed daily. Denies any alcohol use. He did to the hospitalist that he had some urine and stool incontinence 7- 10 days back. Review of Systems 2 Review of Systems: All systems reviewed & are unremarkable except as noted in HPI and below PMFSH Family History Family History (Updated 08/14/25 @ 23:55 by Anup Lin RN) Father Acute myocardial infarction Social History Social History Smoking packs per day: 1 Smoking cigarettes per day: 20.0 Smoking status: Current every day smoker Tobacco type: cigarettes Alcohol intake: former Drinks per week: 0 Substance use: current Substance use type: marijuana Last use: 08/13/2025 Lack of Transportation: No Lack of Food: Never True Current Housing: I Have Housing Concerned About Future Housing: No Difficulty Paying Gas/Electric Bills: No Difficulty Paying for Meds: No Currently Unemployed: YES Education: Decline to Answer Difficulty w/ Childcare or Family Care: No Spiritual care concerns: No Meds Home Medications and Allergies Home Medications ?Medication ?Instructions ?Recorded ?Confirmed ?Type No Home Medications 08/14/25 08/14/25 H istory Allergies Allergy/AdvReac Type Severity Reaction Status Date / Time poison cesar extract Allergy Severe Anaphylaxis Verified 08/14/25 23:53 Vital Signs Vital Signs - 24 hr 08/14/25 17:32 08/14/25 19:13 08/14/25 21:23 Temperature 97.7 F 98.7 F Pulse Rate 77 78 72 Respiratory Rate 16 14 20 Blood Pressure 137/86 134/89 120/78 Pulse Oximetry 96 99 95 Oxygen Delivery Room Air Room Air Oxygen Flow Rate 08/14/25 21:30 08/14/25 21:31 08/14/25 21:45 Temperature Pulse Rate 75 70 71 Respiratory Rate 12 13 16 Blood Pressure 114/80 128/87 125/87 Pulse Oximetry 94 95 95 Oxygen Delivery Oxygen Flow Rate 08/14/25 22:00 08/14/25 22:15 08/14/25 22:45 Temperature Pulse Rate 69 74 Respiratory Rate 20 14 Blood Pressure 118/78 112/81 Pulse Oximetry 97 99 95 Oxygen Delivery Room Air Oxygen Flow Rate 08/14/25 22:53 08/14/25 23:00 08/15/25 00:00 Temperature 97.6 F 97.6 F Pulse Rate 71 81 86 Respiratory Rate 16 19 17 Blood Pressure 124/82 130/82 115/81 Pulse Oximetry 98 94 92 Oxygen Delivery Oxygen Flow Rate 08/15/25 00:00 08/15/25 00:00 08/15/25 00:45 Temperature Pulse Rate 82 Respiratory Rate Blood Pressure Pulse Oximetry 92 94 Oxygen Delivery Room Air Nasal Cannula Oxygen Flow Rate 2 08/15/25 01:00 08/15/25 02:00 08/15/25 02:00 Temperature 98.4 F Pulse Rate 84 83 83 Respiratory Rate 14 13 Blood Pressure 117/74 134/84 Pulse Oximetry 92 91 Oxygen Delivery Oxygen Flow Rate 08/15/25 03:00 08/15/25 04:00 08/15/25 04:00 Temperature 97.6 F Pulse Rate 80 78 Respiratory Rate 14 17 Blood Pressure 127/81 142/88 H Pulse Oximetry 93 94 94 Oxygen Delivery Nasal Cannula Oxygen Flow Rate 2 08/15/25 04:00 08/15/25 05:00 08/15/25 06:00 Temperature 97.8 F Pulse Rate 80 78 70 Respiratory Rate 14 12 Blood Pressure 152/109 H 153/100 H Pulse Oximetry 90 94 Oxygen Delivery Oxygen Flow Rate 08/15/25 06:00 08/15/25 08:13 Temperature Pulse Rate 70 Respiratory Rate Blood Pressure Pulse Oximetry 97 Oxygen Delivery Room Air Oxygen Flow Rate Exam 2 Narrative: General: Pleasant gentleman in no acute distress HEENT:? Chronic anisocoria, sclera is clear moist oral mucosa Neck:? Supple Respiratory:? Clear to auscultation bilaterally, no wheezing, adequate air entry, no rales Cardiac:? S1-S2 is normal, regular rate and rhythm Abdomen:? Soft, nontender, nondistended obese, normoactive bowel sound Extremities:? Bilateral upper extremity strength 5/5, sensations intact. Bilateral lower extremity strength 4/5, sensations intact Neuro:? Patient is awake, alert, oriented x3, answers to questions appropriately and follows simple command. Cranial nerves intact, normal DTRs in lower extremities, decreased in upper extremities Skin:? Macular papular rash on the abdomen, with scabs. Multiple bug bites on lower extremities with abrasions due to scratching Psych:? Normal mentation and affect Results Labs 08/15/25 04:00 08/15/25 04:00 Labs: Short CBC 08/14/25 08/15/25 Range/Units 19:32 04:00 WBC 9.7 8.0 (4.5-10.0) K/mm3 Hgb 16.5 15.2 (14.0-18.0) g/dL Hct 50.8 47.0 (42.0-52.0) % Plt Count 265 241 (150-375) k/mm3 BMP 08/14/25 08/15/25 19:32 04:00 Sodium 138 137 Potassium 4.2 3.8 Chloride 106 108 H Carbon Dioxide 28 25 BUN 27 H 26 H Creatinine 0.83 0.81 Glucose 92 89 Calcium 9.3 8.5 Cardiac Enzymes 08/14/25 Range/Units 19:32 Total Creatine Kinase 389 H (55-170) U/L Liver Function 08/14/25 08/15/25 Range/Units 19:32 04:00 Total Bilirubin 0.8 0.9 (0.2-1.3) mg/dL AST 44 37 (17-59) U/L ALT 36 29 (6-50) U/L Alkaline Phosphatase 83 73 (38-126) U/L Albumin 4.1 3.4 L (3.5-5.1) g/dL Quality VTE Prophylaxis VTE prophylaxis: mechanical ordered Hospitalist MIPS Advance Care Plan I have confirmed that the patient's Advanced Care Plan is present, code status is documented, or surrogate decision maker is listed in patient medical record.: Yes Medication Reconciliation I have utilized all available resources to obtain, update and review the patients current medications (includes all prescriptions, OTC, herbals, cannabis, and nutritional supplements).: Yes
[2025-08-15] MEDS: MIDAZOLAM HCL (*CRX) 2 MG/2 ML VIAL IV PUSH (12:50)
--- NOTE | 2025-08-15 13:28 | PCPTNOTE ---
Attempted PT evaluation, pt off the unit for testing. Will follow.
[2025-08-15] MEDS: fentaNYL CITRATE INJ (*CRX) 100 MCG/2 ML VIAL 25 MCG IV PUSH (14:05)
--- NOTE | 2025-08-15 14:19 | WPDNEURCNPN ---
Assessment and Plan Assessment and plan (1) Weakness of both lower limbs: Code(s): R29.898 - Other symptoms and signs involving the musculoskeletal system Status: Acute (2) Incontinence: Code(s): R32 - Unspecified urinary incontinence Status: Acute Plan it was noted that his hand logging engineer was also weaker than proximal muscles. In the lower limbs there was a mild weakness however no fasciculations or muscle wasting seen. Deep tendon reflexes at knees and ankles are relatively well preserved at 2/4 for the upper limb is a somewhat decrease. This may raise possibility of cervical spinal cord lesion at C 7 level however other conditions such as Gullain Lutz syndrome or transient myelitis may also to be considered. Patient had a tick bite the recent past and hence the possibility of GBS is also being considered. I would suggest an MRI of the entire spine and this does not show any compression of the spinal cord which could do a spinal tap thereafter. I spoke to the mergers and acquisitions manager Dr. Keane and he agrees with the plan. I also is advised to obtain a postvoid residual volume with an ultrasound. I shall be glad to follow up with the results of these. Consult date: 08/15/25 HPI: Bret Esparza is a 65 year old male with complaints of weakness in both lower limbs for last 4 days. Patient is known to have anisocoria with right pupil being larger than the left side. He is also a smoker and uses marijuana. He told me that he has had incontinence of urine and feces although today he feels that he knows when he needs to go. A prior to the onset of symptoms he denies any febrile illness or injuries. He denies any pain in the neck or spine area. was found to have a tick on this thigh that was removed by him. He did not get the full head of the tick removed and hence went in with the freezer to try and get it out. He also has had some bug bites on his extremities do that. Apparently he had fever of unknown origin. No diarrhea or respiratory illness. No problems breathing. He denies any difficulty speech or swallowing. He also states that he cannot feel his legs in the feel like weight. Review of Systems Review of Systems: All systems reviewed & are unremarkable except as noted in HPI and below PMFSH Past Medical History Medical History (Updated 08/15/25 @ 14:25 by Paige Nieto MD) Weakness of both lower limbs Family History Family History (Updated 08/14/25 @ 23:55 by Anup Lin RN) Father Acute myocardial infarction Social History Social History Smoking packs per day: 1 Smoking cigarettes per day: 20.0 Smoking status: Current every day smoker Tobacco type: cigarettes Alcohol intake: former Drinks per week: 0 Substance use: current Substance use type: marijuana Last use: 08/13/2025 Lack of Transportation: No Lack of Food: Never True Current Housing: I Have Housing Concerned About Future Housing: No Difficulty Paying Gas/Electric Bills: No Difficulty Paying for Meds: No Currently Unemployed: YES Education: Decline to Answer Difficulty w/ Childcare or Family Care: No Spiritual care concerns: No Meds Home Medications and Allergies Home Medications ?Medication ?Instructions ?Recorded ?Confirmed ?Type No Home Medications 08/14/25 08/14/25 History Allergies Allergy/AdvReac Type Severity Reaction Status Date / Time poison cesar extract Allergy Severe Anaphylaxis Verified 08/14/25 23:53 Vital Signs Vital Signs - 24 hr 08/14/25 17:32 08/14/25 19:13 08/14/25 21:23 Temperature 97.7 F 98.7 F Pulse Rate 77 78 72 Respiratory Rate 16 14 20 Blood Pressure 137/86 134/89 120/78 Pulse Oximetry 96 99 95 Oxygen Delivery Room Air Room Air Oxygen Flow Rate 08/14/25 21:30 08/14/25 21:31 08/14/25 21:45 Temperature Pulse Rate 75 70 71 Respiratory Rate 12 13 16 Blood Pressure 114/80 128/87 125/87 Pulse Oximetry 94 95 95 Oxygen Delivery Oxygen Flow Rate 08/14/25 22:00 08/14/25 22:15 08/14/25 22:45 Temperature Pulse Rate 69 74 Respiratory Rate 20 14 Blood Pressure 118/78 112/81 Pulse Oximetry 97 99 95 Oxygen Delivery Room Air Oxygen Flow Rate 08/14/25 22:53 08/14/25 23:00 08/15/25 00:00 Temperature 97.6 F 97.6 F Pulse Rate 71 81 86 Respiratory Rate 16 19 17 Blood Pressure 124/82 130/82 115/81 Pulse Oximetry 98 94 92 Oxygen Delivery Oxygen Flow Rate 08/15/25 00:00 08/15/25 00:00 08/15/25 00:45 Temperature Pulse Rate 82 Respiratory Rate Blood Pressure Pulse Oximetry 92 94 Oxygen Delivery Room Air Nasal Cannula Oxygen Flow Rate 2 08/15/25 01:00 08/15/25 02:00 08/15/25 02:00 Temperature 98.4 F Pulse Rate 84 83 83 Respiratory Rate 14 13 Blood Pressure 117/74 134/84 Pulse Oximetry 92 91 Oxygen Delivery Oxygen Flow Rate 08/15/25 03:00 08/15/25 04:00 08/15/25 04:00 Temperature 97.6 F Pulse Rate 80 78 Respiratory Rate 14 17 Blood Pressure 127/81 142/88 H Pulse Oximetry 93 94 94 Oxygen Delivery Nasal Cannula Oxygen Flow Rate 2 08/15/25 04:00 08/15/25 05:00 08/15/25 06:00 Temperature 97.8 F Pulse Rate 80 78 70 Respiratory Rate 14 12 Blood Pressure 152/109 H 153/100 H Pulse Oximetry 90 94 Oxygen Delivery Oxygen Flow Rate 08/15/25 06:00 08/15/25 07:00 08/15/25 08:00 Temperature 98.3 F Pulse Rate 70 64 Respiratory Rate 14 Blood Pressure 128/87 Pulse Oximetry 96 Oxygen Delivery Room Air Oxygen Flow Rate 08/15/25 08:00 08/15/25 08:00 08/15/25 08:13 Temperature 98 F Pulse Rate 64 64 Respiratory Rate 13 Blood Pressure 134/94 H Pulse Oximetry 96 97 Oxygen Delivery Room Air Oxygen Flow Rate 08/15/25 10:00 08/15/25 11:00 Temperature 97.4 F L Pulse Rate 60 67 Respiratory Rate 16 Blood Pressure 141/94 H Pulse Oximetry 99 Oxygen Delivery Oxygen Flow Rate Exam Narrative: Fully conscious alert oriented to self time place and person. Speech is fluent and articulate. Memory appears intact. Patient is alert and cooperative. Examination head and neck shows no evidence of external trauma. No nuchal rigidity. Cranial nerves on individual testing show pupils were unequal being larger on the right the left side. No facial asymmetry. Tongue was midline. Facial sensation intact. Other cranial nerves within normal limits. Motor system normal power in both upper limbs except some weakness of the hand logging engineer on both sides. No fasciculations seen. The lower limb examination he has mild weakness power grade 4 to 4+ over 5. Deep tendon reflexes the knees and ankles were however 2+ on both sides without any asymmetry. Biceps, triceps and supinator reflexes 0 to 1/4 sensory examination to touch pin and temperature and vibration did not show any sensory level or loss of sensation on the trunk or lower limbs compared to the upper part of the body. No ataxia nystagmus or intention tremors were noted however gait was not tested at this time. Coordination finger-nose appears normal. Results Labs 08/15/25 04:00 08/15/25 04:00 Labs: Short CBC 08/14/25 08/15/25 Range/Units 19:32 04:00 WBC 9.7 8.0 (4.5-10.0) K/mm3 Hgb 16.5 15.2 (14.0-18.0) g/dL Hct 50.8 47.0 (42.0-52.0) % Plt Count 265 241 (150-375) k/mm3 BMP 08/14/25 08/15/25 19:32 04:00 Sodium 138 137 Potassium 4.2 3.8 Chloride 106 108 H Carbon Dioxide 28 25 BUN 27 H 26 H Creatinine 0.83 0.81 Glucose 92 89 Calcium 9.3 8.5 Cardiac Enzymes 08/14/25 Range/Units 19:32 Total Creatine Kinase 389 H (55-170) U/L Liver Function 08/14/25 08/15/25 Range/Units 19:32 04:00 Total Bilirubin 0.8 0.9 (0.2-1.3) mg/dL AST 44 37 (17-59) U/L ALT 36 29 (6-50) U/L Alkaline Phosphatase 83 73 (38-126) U/L Albumin 4.1 3.4 L (3.5-5.1) g/dL
[2025-08-15] MEDS: cefTRIAXone 2 GM in SODIUM CHLORIDE 0.9% IV 100 ML 200 ML IVPB (15:26)
[2025-08-15] MEDS: DOXYCYCLINE HYCLATE 100 MG TABLET PO ×2 (15:26→20:30)
[2025-08-16] VITALS (57 sets, daily range): BP systolic 125–175; BP diastolic 76–109; PULSE 64–99; RESP 13–24; TEMP 36.6–37.2; O2SAT 91–100
[2025-08-16 03:38] LABS: Hematocrit 49.2 % (42.0-52.0); Hemoglobin 15.8 g/dL (14.0-18.0); Immature Granulocyte Percent A 0.4 % (0-0.5); Lymphocytes Absolute Auto 1.62 K/mm3 (0.9-3.2); Mean Corpuscular HGB Conc 32.1 g/dl (32-36); Mean Corpuscular Hemoglobin 30.6 pg (26-34); Mean Corpuscular Volume 95.3 fl (80-100); Nucleated Red Blood Cells Absolute Auto 0.000 K/mm3 (0.0-0.012); Nucleated Red Blood Cells Perc 0.0 % (0.0-0.2); Platelet Count Result 247 k/mm3 (150-375); Red Blood Count 5.16 M/mm3 (4.6-6.20); White Blood Count 11.0 K/mm3 (4.5-10.0)
[2025-08-16 03:54] LABS: Alanine Aminotransferase 28 U/L (6-50); Albumin Level 3.6 g/dL (3.5-5.1); Alkaline Phosphatase 78 U/L (38-126); Anion Gap 4 mmol/L (4-12); Aspartate Amino Transferase 28 U/L (17-59); Bilirubin,Total 0.3 mg/dL (0.2-1.3); Blood Urea Nitrogen 21 mg/dL (9-20); Calcium 8.5 mg/dL (8.4-10.2); Carbon Dioxide 28 mmol/L (22-30); Chloride 105 mmol/L (98-107); Estimated CRCL calculation 79 ml/min; Estimated Glomerular Filt Rate > 60; Glucose 107 mg/dL (65-110); Magnesium 2.2 mg/dL (1.6-2.3); Potassium 4.0 mmol/L (3.4-5.0); Sodium 137 mmol/L (137-145); Total Protein 6.6 g/dL (6.3-8.2)
[2025-08-16] MEDS: DOXYCYCLINE HYCLATE 100 MG TABLET PO ×2 (08:06→20:17)
[2025-08-16] MEDS: SODIUM CHLORIDE 0.9% IV 1,000 ML 83 ML IV CONT (08:06)
--- NOTE | 2025-08-16 08:39 | P.CONNS_ITS ---
Assessment and Plan Assessment and plan (1) Cervical myelopathy: Code(s): G95.9 - Disease of spinal cord, unspecified Status: Acute Plan I reviewed the patient's imaging findings with Neurology, ICU attending, the patient and his family. I explained 1st of all that the quality of the MRI is very poor due to motion degradation and is very difficult to ascertain whether not there is cervical myelomalacia cervical spinal stenosis or cervical spinal compression. I am able to get a rough representation from the images and indicate that he does have cervical spinal stenosis at C5-6 and C6-7. If this is compressing the spinal cord the positive Bear's on his right side and his symptoms possibly could be explained by spinal cord compression and cervical myelopathy. However the time course of his presentation 1 cervical myelopathy do not exactly fit. Generally cervical myelopathy is a chronic slow progression of weakness this appears to be acute over the matter of days or weeks. I do have some concern that the imaging finding of cervical myelopathy could be a [place] of something that is chronic in nature and may not necessarily be correlated with his acute presentation of symptoms. I will defer to Neurology for evaluation workup of this. I did explain the surgical option of spinal decompression via a C5-6, C6-7 anterior cervical diskectomy and fusion to decompress his cervical spinal cord. This is an option either during this hospitalization or as an outpatient depending on further workup. I did again stress that these recommendations were based off of a very poor quality MRI and repeat MRI would be necessary to provide more detailed recommendations. Ultimately surgery is certainly an option he does likely have spinal canal stenosis with spinal compression but I explained to the patient and all teams that would be a best to leave surgery as a last resort pending further workup. I will continue to follow along and I explained to the patient that I can call him next week with updates pending further evaluation. Consult date: 08/16/25 Reason for consult: Evaluation of cervical spinal stenosis and resultant cervical myelopathy HPI: Bret Esparza is a 65 year old male with hypertension but otherwise no major medical problems who presents with acute onset weakness of both lower limbs as well as progression to weakness in his upper extremities particularly his hands over the past 4 days and possibly even longer about 1-2 weeks. He explains that he was out doing some gardening and felt a back pain in the middle of his shoulder blades with resultant numbness from that area down including his legs. This caused him difficulty walking any head what he described as about 200 falls. He notes that the numbness has improved slightly and the weakness in his legs have improved slightly and they are currently sore. He notes that he has equally weak in his hands and his legs. There is reportedly a history of a tick bite that he removed himself. He also at some point had a fever of unknown origin. He feels like he can not feel his legs and they feel like they are not part of him. He was seen by Neurology for evaluation of possible Guillain-Whitesburg syndrome or transverse myelitis however he experience some hyperreflexia and because of this an MRI of the total spine was obtained to evaluate for possible cervical myelopathy and spinal cord compression. The MRI resulted with cervical spinal stenosis at C5-6 and C6-7 however the MRI scan was severely motion degraded. I was consulted for evaluation of the cervical spinal stenosis/myelopathy to determine if this is the cause of his symptoms. Review of Systems 2 Review of Systems: Full review of systems was performed and negative other than what is listed in history of presenting illness. [facility] Past Medical History Medical History (Updated 08/16/25 @ 08:46 by Geovanny Ye MD) Weakness of both lower limbs Family History Family History (Updated 08/14/25 @ 23:55 by Anup Lin RN) Father Acute myocardial infarction Social History Social History Smoking packs per day: 1 Smoking cigarettes per day: 20.0 Smoking status: Current every day smoker Tobacco type: cigarettes Alcohol intake: former Drinks per week: 0 Substance use: current Substance use type: marijuana Last use: 08/13/2025 Lack of Transportation: No Lack of Food: Never True Current Housing: I Have Housing Concerned About Future Housing: No Difficulty Paying Gas/Electric Bills: No Difficulty Paying for Meds: No Currently Unemployed: YES Education: Decline to Answer Difficulty w/ Childcare or Family Care: No Spiritual care concerns: No Meds Home Medications and Allergies Home Medications ?Medication ?Instructions ?Recorded ?Confirmed ?Type No Home Medications 08/14/25 08/14/25 H istory Allergies Allergy/AdvReac Type Severity Reaction Status Date / Time poison cesar extract Allergy Severe Anaphylaxis Verified 08/14/25 23:53 Vital Signs Vital Signs - 24 hr 08/15/25 10:00 08/15/25 11:00 08/15/25 15:00 Temperature 97.4 F L Pulse Rate 60 67 81 Respiratory Rate 16 16 Blood Pressure 141/94 H 145/101 H Pulse Oximetry 99 94 Oxygen Delivery Oxygen Flow Rate 08/15/25 16:00 08/15/25 16:00 08/15/25 17:00 Temperature 98.5 F Pulse Rate 67 59 L 83 Respiratory Rate 16 14 Blood Pressure 168/107 H 129/83 Pulse Oximetry 96 92 Oxygen Delivery Oxygen Flow Rate 08/15/25 18:00 08/15/25 18:00 08/15/25 20:00 Temperature 98.4 F 98.2 F Pulse Rate 84 83 78 Respiratory Rate 15 18 Blood Pressure 130/82 123/85 Pulse Oximetry 90 97 Oxygen Delivery Oxygen Flow Rate 08/15/25 20:00 08/15/25 20:00 08/15/25 22:00 Temperature Pulse Rate 78 94 Respiratory Rate Blood Pressure Pulse Oximetry Oxygen Delivery Room Air Oxygen Flow Rate 08/16/25 00:00 08/16/25 00:00 08/16/25 00:00 Temperature 97.8 F Pulse Rate 78 70 Respiratory Rate 14 Blood Pressure 152/96 H Pulse Oximetry 96 99 Oxygen Delivery Nasal Cannula Oxygen Flow Rate 2 08/16/25 02:00 08/16/25 04:00 08/16/25 04:00 Temperature Pulse Rate 68 68 Respiratory Rate Blood Pressure Pulse Oximetry 95 Oxygen Delivery Nasal Cannula Oxygen Flow Rate 2 08/16/25 04:00 08/16/25 06:00 Temperature 98.6 F Pulse Rate 68 73 Respiratory Rate 14 Blood Pressure 165/105 H Pulse Oximetry 95 Oxygen Delivery Oxygen Flow Rate Exam 2 Narrative: Patient is lying in bed in no acute distress his upper extremity strength is full in the deltoids, biceps, triceps wrist extensors and wrist flexors however he is slightly weak in the guest experience specialist about 4/5 strength he does have a Bear's on the right side. Const: Other: He is awake alert and oriented to person place and time speech is fluent clear. His right pupil is slightly larger than his left. He has no facial is asymmetry. His tongue is midline his facial sensation is intact he has good shoulder shrug I do not appreciate any fasciculations on his chest hurts time. I am unable to elicit any triceps reflexes or biceps reflexes. His motor power in his lower extremities appear to be equal with weakness about 4/5 strength in all muscle groups. He has symmetric patellar reflexes. Results Labs 08/16/25 03:26 08/16/25 03:26 Labs: Short CBC 08/16/25 Range/Units 03:26 WBC 11.0 H (4.5-10.0) K/mm3 Hgb 15.8 (14.0-18.0) g/dL Hct 49.2 (42.0-52.0) % Plt Count 247 (150-375) k/mm3 BMP 08/16/25 03:26 Sodium 137 Potassium 4.0 Chloride 105 Carbon Dioxide 28 BUN 21 H Creatinine 0.89 Glucose 107 Calcium 8.5 Liver Function 08/16/25 Range/Units 03:26 Total Bilirubin 0.3 (0.2-1.3) mg/dL AST 28 (17-59) U/L ALT 28 (6-50) U/L Alkaline Phosphatase 78 (38-126) U/L Albumin 3.6 (3.5-5.1) g/dL
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
[2025-08-16] MEDS: MIDAZOLAM HCL (*CRX) 2 MG/2 ML VIAL IV PUSH (10:56)
--- NOTE | 2025-08-16 13:58 | PCOTNOTE ---
Attempted to see pt for OT evaluation this morning however pt had another pending MRI and hospitalist stated to wait. In the afternoon, MRI completed however RN said to hold for today and they would be putting in bedrest orders and pt may transfer to higher level of care. Will continue to follow.
--- NOTE | 2025-08-16 14:20 | PCPTNOTE ---
Spoke with current hospitalist. Per hospitalist, DC orders until further notice. Please re-order when pt appropriate for therapy.
--- NOTE | 2025-08-16 16:36 | WPDIDCN ---
Assessment and Plan Assessment and plan (1) Tick bite: Code(s): W57.XXXA - Bitten or stung by nonvenomous insect and other nonvenomous arthropods, initial encounter Status: Acute (2) Neurological muscle weakness: Code(s): M62.81 - Muscle weakness (generalized) Status: Acute (3) Ataxia of both legs: Code(s): R27.0 - Ataxia, unspecified Status: Acute (4) Complaint of paresthesia: Code(s): R20.2 - Paresthesia of skin Status: Acute (5) Spondylosis: Code(s): M47.9 - Spondylosis, unspecified Status: Acute (6) Mosquito bite: Code(s): W57.XXXA - Bitten or stung by nonvenomous insect and other nonvenomous arthropods, initial encounter Status: Acute Plan Relatively acute onset of generalized muscle weakness, numbness, and paresthesias primarily involving extremities and lower torso. He also describes muscular spasticity. The above combination has led to frequent falls over the 3 days prior to admission. While MRI of the spine shows evidence of spondylosis his symptoms have not developed progressively over an extended period time; rather, he appeared to have developed acutely and in temporal proximity to the removal of a recent tick as well as multiple mosquito bites. Would consider the following: -- possible early disseminated Lyme disease with neurologic manifestations; specifically, radiculoneuritis. -- possible neuro invasive West Nile virus with spasticity and weakness. -- possible radiculopathy secondary to multifocal spondylosis. -- possible tick paralysis although the only known tick present was removed greater than 2 weeks ago. -- possible Guillain-[place] disease although tendon reflexes seem intact. Plan: -- appropriate tests have already been ordered including Lyme serology and PCR and West Nile serology. -- unless there is a significant contraindication to performing LP would proceed with this procedure through IR. Appropriate CSF studies have already been ordered including routine protein, glucose, Gram stain, culture, cryptococcal antigen and fungal culture, VDRL, CSF West Nile and Lyme antibody testing, and the broader enteroviral panel. -- if not already performed would obtain HIV study. -- continue doxycycline which would be appropriate for early disseminated Lyme neurologic disease. -- would re-evaluate scalp for additional residual ticks But this seems less likely given his exposure was reportedly greater than 2 weeks ago. -- the above was discussed with Dr. Pedroza. -- both neurology and Neurosurgery are following. -- further recommendations to follow. Thank you for the consult. 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 He presented to the ED 08/14/2025 with a Roughly 3 day history of progressive weakness and extremity numbness/paresthesias all leading to multiple falls. he describes muscle weakness along with myalgias, and a numbing sensation to his legs, hands, and back. he also describes some form of intermittent spasticity. He reports finding a tick on his upper right thigh 2 and half weeks ago after performing extensive yd work. He is unclear as to how long the tick was in place. Attempt at removal led to separation of body from head and he used a file to further dig out the head. No significant rash has developed at this site. He also reports multiple mosquito bites after waiting through an area of wet plans around the same time. He has multiple excoriations and bruises on his body that he ascribes to recent falls. He also notes small, Punctate bug bites on his back, abdomen, and other areas of his extremities. 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 He does not [place] or camp and has had no animal exposure except to his 3 dogs who are housebound and healthy. No one else is sick at home. He is not on any significant traveling. On presentation he was noted to have lower extremity ataxia and clumsy fingers. Borderline decreased strength in his lower extremities. No apparent cranial nerve deficits. He has been afebrile with a normal white blood cell count and a sedimentation rate of 3 With a CRP of 3.2. CT of the head was unremarkable. LP was attempted on presentation but was unsuccessful. Additional workup post admission has included an unremarkable MRI of the brain. MRI of the cervical, thoracic, and lumbar spine, however, is significant for mild to moderate cervical spondylosis most notable for disc bulge with severe central canal stenosis at C5-C6 and associated focal increased cord signal consistent with secondary myelopathy, mild thoracic spondylosis with no central canal stenosis, and moderate lumbar spondylosis with suggestion of severe central canal stenosis at L3-L4 and L4-L5 but assessment is limited by motion. An additional 2.5 cm mass in the right lower lobe was identified. Lyme PCR is pending. He initially received a limited dose of ceftriaxone but was transition to continued doxycycline. Patient reports improvement in both weakness and numbness since admission. However, he has not ambulated significantly out of bed. Review of Systems Review of Systems: All systems reviewed & are unremarkable except as noted in HPI and below PMFSH Past Medical History Medical History (Updated 08/16/25 @ 17:25 by Josh Neil MD) Weakness of both lower limbs Family History Family History (Updated 08/14/25 @ 23:55 by Anup Lin RN) Father Acute myocardial infarction Social History Social History Smoking packs per day: 1 Smoking cigarettes per day: 20.0 Smoking status: Current every day smoker Tobacco type: cigarettes Alcohol intake: former Drinks per week: 0 Substance use: current Substance use type: marijuana Last use: 08/13/2025 Lack of Transportation: No Lack of Food: Never True Current Housing: I Have Housing Concerned About Future Housing: No Difficulty Paying Gas/Electric Bills: No Difficulty Paying for Meds: No Currently Unemployed: YES Education: Decline to Answer Difficulty w/ Childcare or Family Care: No Spiritual care concerns: No Meds Home Medications and Allergies Home Medications ?Medication ?Instructions ?Recorded ?Confirmed ?Type No Home Medications 08/14/25 08/14/25 History Allergies Allergy/AdvReac Type Severity Reaction Status Date / Time poison cesar extract Allergy Severe Anaphylaxis Verified 08/14/25 23:53 Vital Signs Vital Signs - 24 hr 08/15/25 17:00 08/15/25 18:00 08/15/25 18:00 Temperature 98.5 F 98.4 F Pulse Rate 83 84 83 Respiratory Rate 14 15 Blood Pressure 129/83 130/82 Pulse Oximetry 92 90 Oxygen Delivery Oxygen Flow Rate 08/15/25 20:00 08/15/25 20:00 08/15/25 20:00 Temperature 98.2 F Pulse Rate 78 78 Respiratory Rate 18 Blood Pressure 123/85 Pulse Oximetry 97 Oxygen Delivery Room Air Oxygen Flow Rate 08/15/25 22:00 08/16/25 00:00 08/16/25 00:00 Temperature 97.8 F Pulse Rate 94 78 Respiratory Rate 14 Blood Pressure 152/96 H Pulse Oximetry 96 99 Oxygen Delivery Nasal Cannula Oxygen Flow Rate 2 08/16/25 00:00 08/16/25 02:00 08/16/25 04:00 Temperature Pulse Rate 70 68 68 Respiratory Rate Blood Pressure Pulse Oximetry Oxygen Delivery Oxygen Flow Rate 08/16/25 04:00 08/16/25 04:00 08/16/25 06:00 Temperature 98.6 F Pulse Rate 68 73 Respiratory Rate 14 Blood Pressure 165/105 H Pulse Oximetry 95 95 Oxygen Delivery Nasal Cannula Oxygen Flow Rate 2 08/16/25 08:00 08/16/25 08:00 08/16/25 08:00 Temperature 98.8 F Pulse Rate 71 93 Respiratory Rate 15 Blood Pressure 125/84 Pulse Oximetry 94 97 Oxygen Delivery Room Air Oxygen Flow Rate 08/16/25 10:00 08/16/25 12:00 08/16/25 12:00 Temperature 98 F Pulse Rate 98 79 Respiratory Rate 14 Blood Pressure 127/76 Pulse Oximetry 96 95 Oxygen Delivery Room Air Oxygen Flow Rate 08/16/25 12:00 08/16/25 14:00 Temperature Pulse Rate 94 83 Respiratory Rate Blood Pressure Pulse Oximetry Oxygen Delivery Oxygen Flow Rate Exam Narrative: Well-developed, well-nourished, and nontoxic in appearance. Breathing comfortably. No significant abdominal distention. He denies diarrhea. Right upper anterior thigh with minimal evidence of prior tick bite. No evidence of rash. He has scattered punctate type lesions around his lower back and lower abdomen without specific rash formation. No papules or pustules. Results Labs 08/16/25 03:26 08/16/25 03:26 Labs: Short CBC 08/16/25 Range/Units 03:26 WBC 11.0 H (4.5-10.0) K/mm3 Hgb 15.8 (14.0-18.0) g/dL Hct 49.2 (42.0-52.0) % Plt Count 247 (150-375) k/mm3 BMP 10/24/25 03:26 Sodium 137 Potassium 4.0 Chloride 105 Carbon Dioxide 28 BUN 21 H Creatinine 0.89 Glucose 107 Calcium 8.5 Liver Function 08/16/25 Range/Units 03:26 Total Bilirubin 0.3 (0.2-1.3) mg/dL AST 28 (17-59) U/L ALT 28 (6-50) U/L Alkaline Phosphatase 78 (38-126) U/L Albumin 3.6 (3.5-5.1) g/dL
[2025-08-16] MEDS: ACETAMINOPHEN 325 MG TABLET 650 MG PO (20:21)
--- NOTE | 2025-08-16 20:54 | PC.NURSE ---
Spoke with radiology and they recommend patient be NPO 8 hours before lumbar puncture. Patient has been informed. Received permission to order PT, INR, PTT, and CBC for lumbar puncture from Dr Torres.
[2025-08-17] VITALS (15 sets, daily range): BP systolic 128–169; BP diastolic 73–103; PULSE 69–103; RESP 13–24; TEMP 36.6–37.1; O2SAT 91–97
[2025-08-17 03:50] LABS: Hematocrit 51.5 % (42.0-52.0); Hemoglobin 17.0 g/dL (14.0-18.0); Immature Granulocyte Percent A 0.4 % (0-0.5); Lymphocytes Absolute Auto 1.38 K/mm3 (0.9-3.2); Mean Corpuscular HGB Conc 33.0 g/dl (32-36); Mean Corpuscular Hemoglobin 31.3 pg (26-34); Mean Corpuscular Volume 94.7 fl (80-100); Nucleated Red Blood Cells Absolute Auto 0.000 K/mm3 (0.0-0.012); Nucleated Red Blood Cells Perc 0.0 % (0.0-0.2); Platelet Count Result 232 k/mm3 (150-375); Red Blood Count 5.44 M/mm3 (4.6-6.20); White Blood Count 11.8 K/mm3 (4.5-10.0)
[2025-08-17 04:31] LABS: INR 1.0; Prothrombin Time 13.3 Seconds (11.1-14.7)
[2025-08-17 04:32] LABS: Partial Thromboplastin Time 28.0 Seconds (22.3-36.8)
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
--- NOTE | 2025-08-17 12:25 | CY_PTH ---
PATIENT: Bret Esparza LOC: [facility] U#:[id number] AGE/SX: 65/M ROOM: 210 RE08/14/[address]: Jamel Pedroza MD : [id number] BED: 01 DIS: 08/17/2025 SPEC #: [id number] RECD: 08/19/25 13:36 STATUS: XIOMARA REQ #: [id number] YOEL: 08/17/25 12:[address]: Jamel Pedroza DEPT: [facility] Cytology RECD BY: Lia Ortega ENTERED: 08/19/25 13:37 SP TYPE: Cytology OTHR DR: MD Geovanny Holguin MD Paul Frohnert, MD Rafe M. Heng, DO MD Josh Patel MD Sajjan K. Nemani, MD Kha Nguyen, L[employer] VOLTAGE ELECT[employer]ICIAN PHYSICIAN Tissues: A - CSF Procedures: Cytopathology Cytospin
[2025-08-17] MEDS: DOXYCYCLINE HYCLATE 100 MG TABLET PO ×2 (13:30→20:01)
[2025-08-17 13:54] LABS: Nucleated Cell CSF 1 /uL (0-5); Red Blood Cell CSF 145 (0-2)
--- NOTE | 2025-08-17 15:25 | PC.NURSE ---
This patient, Bret Esparza, was transferred to [[id number]] on 08/17/25 at 1526. Personal belongings sent with patient. Report given to [Francisco SAWYER]. Appropriate documentation sent with patient.
--- NOTE | 2025-08-17 15:33 | P.PNNEUR_ITS ---
Progress Note: A&P Assessment and Plan (1) Cervical myelopathy: Code(s): G95.9 - Disease of spinal cord, unspecified Status: Acute Assessment and Plan: (2) Incontinence: Code(s): R32 - Unspecified urinary incontinence Status: Acute (3) Tick bite: Code(s): W57.XXXA - Bitten or stung by nonvenomous insect and other nonvenomous arthropods, initial encounter Status: Acute Plan The patient's examination findings and sensory similar to previous examination. Rectal examination shows that his rectal tone is decreased but not completely gone. He has difficulty squeezing and the sphincter on the fingers. I have asked for a postvoid residual volume and revising the nurse to let me know with the results. I also spoke to and made him aware of these findings. A repeat MRI of the of the cervical spine was also conclusive since there more motion artifact than before. Previous MRI head did show some changes at C5-6 level with loss of CSF around the spinal cord noted on the cross-sectional views being slightly more on the right than left side. There is a significant narrowing at this level and with some changes in the spinal cord at this level at least on 1 of the views. I have discussed this with Dr. Ye. and he did see the patient yesterday but he feels that a better MRI is required before he can make a decision. In the meanwhile the patient also consulted with infectious disease specialist. Spinal tap was tap was performed which shows protein was 95 WBC count 1 and RBC 145. His blood count test does show CPK was 12/25/1986. Patient has had multiple falls. I do not feel that the spinal fluid is a examination and the direct examination findings are sufficient to make a diagnosis of GBS particular since the lower limb reflexes are still preserved and overall findings still point to the cervical myelopathy. There is also mild weakness of the hand muscles suggestive of a lesion above T1 and MRI at least shows finding of significant narrowing at C5-6 level. The neurosurgeon felt that the symptoms generally developed gradually and since patient's symptoms started 2 weeks ago on a repeated history to taken today. 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 Based upon these findings I do not suggest empiric treatment with IVIG however if you feel a need to get a tertiary care opinion I shall leave this up to you as I spoke to the hospitalist . Subjective Date/time seen: 08/17/25 15:33 Interval history: The patient continues to feel weak in both lower limbs and there has not been any changes in his symptoms. He is afraid to walk. He was seen by neurosurgeon after have chance to discuss the case with him in great detail Dr. Ye, neurosurgeon felt that the patient should have a better MRI to delineate what is going on cervical spine. Repeat MRI was performed yesterday which was also inconclusive because they are even more motion artifact. Patient states that he Has abnormal feeling in the lower limbs which is why he cannot lie still. He was given sedation that was also not sufficient to hold him completely still. However he does not feel that he has any difficulty with voiding or going to defecation. Previous he has had at least 1 episode of difficulty jordan without his knowledge and has had a few bouts of incontinence of urine. 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 Not feel that he has any significant weakness prior to that. His also endorses that. He denies any other issues outside the fact that he has had tick bite and the patient is being evaluated by Infectious Disease. Spinal tap was performed the results of which were appraised. I also have a previous the results of all the MRIs including that of the brain and cervical and thoracic and lumbar spine. Review of Systems Review of Systems: All systems reviewed & are unremarkable except as noted in HPI and below Exam Narrative: Fully conscious alert oriented to self time place and person. Speech is fluent and articulate. No aphasia or dysarthria. No cognitive impairment. Examination head and neck shows an isocoria with right pupil being larger than the left. No facial asymmetry. Tongue was midline. Motor system normal normal power in both upper limbs except for mild weakness of the hand muscles. Power grade 4 per 5. In the both lower limbs power grade 4 per 5 however ankle and knee reflexes are 2/4 wears biceps, triceps and supinator reflexes were 0 to 1/4. No sensory level. No distal sensory loss in the lower limbs. No sensory loss in the trunk. No involuntary movements are seen. Objective Data Vital Signs Vital Signs: Vital Signs - 24 hr 08/16/25 15:45 08/16/25 16:00 08/16/25 16:00 Temperature 98.9 F Pulse Rate 82 89 Respiratory Rate 15 17 Blood Pressure 167/95 H Pulse Oximetry 95 96 95 Oxygen Delivery Room Air 08/16/25 16:00 08/16/25 16:00 08/16/25 16:15 Temperature Pulse Rate 74 80 64 Respiratory Rate 19 14 Blood Pressure Pulse Oximetry 97 98 Oxygen Delivery 08/16/25 16:30 08/16/25 16:45 08/16/25 17:00 Temperature Pulse Rate 81 85 79 Respiratory Rate 15 18 15 Blood Pressure Pulse Oximetry 97 95 97 Oxygen Delivery 08/16/25 17:15 08/16/25 17:30 08/16/25 17:31 Temperature Pulse Rate 77 80 90 Respiratory Rate 16 17 20 Blood Pressure 167/95 H Pulse Oximetry 98 91 96 Oxygen Delivery 08/16/25 17:45 08/16/25 18:00 08/16/25 18:00 Temperature Pulse Rate 86 84 80 Respiratory Rate 21 H 15 Blood Pressure Pulse Oximetry 93 95 Oxygen Delivery 08/16/25 18:15 08/16/25 18:35 08/16/25 18:45 Temperature Pulse Rate 89 85 82 Respiratory Rate 16 18 15 Blood Pressure Pulse Oximetry 96 95 94 Oxygen Delivery 08/16/25 19:00 08/16/25 19:15 08/16/25 19:30 Temperature Pulse Rate 84 84 80 Respiratory Rate 18 16 19 Blood Pressure Pulse Oximetry 94 96 97 Oxygen Delivery 08/16/25 19:45 08/16/25 20:00 08/16/25 20:00 Temperature 98.0 F Pulse Rate 92 Respiratory Rate 16 Blood Pressure Pulse Oximetry 93 94 Oxygen Delivery Room Air 08/16/25 20:00 08/16/25 20:00 08/16/25 22:00 Temperature Pulse Rate 88 81 81 Respiratory Rate 16 Blood Pressure 175/109 H Pulse Oximetry 96 Oxygen Delivery 08/17/25 00:00 08/17/25 00:00 08/17/25 00:00 Temperature 97.9 F Pulse Rate 94 85 Respiratory Rate 15 Blood Pressure 147/96 H Pulse Oximetry 92 93 Oxygen Delivery Room Air 08/17/25 02:00 08/17/25 03:47 08/17/25 03:51 Temperature 97.9 F Pulse Rate 76 81 Respiratory Rate 13 Blood Pressure Pulse Oximetry 91 97 Oxygen Delivery Room Air 08/17/25 04:00 08/17/25 04:00 08/17/25 06:35 Temperature Pulse Rate 70 82 Respiratory Rate Blood Pressure 169/99 H Pulse Oximetry Oxygen Delivery 08/17/25 08:00 08/17/25 08:00 08/17/25 08:00 Temperature 98.0 F Pulse Rate 80 78 Respiratory Rate 15 Blood Pressure 156/96 H Pulse Oximetry 95 93 Oxygen Delivery Room Air 08/17/25 10:00 08/17/25 12:00 08/17/25 12:00 Temperature 98.1 F Pulse Rate 69 91 Respiratory Rate 24 H Blood Pressure 128/91 H Pulse Oximetry 92 95 Oxygen Delivery Room Air 08/17/25 12:00 08/17/25 13:00 08/17/25 13:28 Temperature Pulse Rate 84 81 83 Respiratory Rate 20 15 Blood Pressure 145/101 H 137/92 H Pulse Oximetry 94 92 Oxygen Delivery 08/17/25 13:29 08/17/25 14:00 Temperature Pulse Rate 85 92 Respiratory Rate 18 Blood Pressure 144/103 H Pulse Oximetry 94 Oxygen Delivery Intake/Output Intake/Output: Intake & Output 08/14/25 08/15/25 08/16/25 08/17/25 23:59 23:59 23:59 23:59 Intake Total 100 1740 1880 Output Total 1100 6165 1625 Balance 100 321 -389 -5557 Meds/Results Medications: Active Medications Generic Name Dose Route Start Last Admin Trade Name Freq PRN Reason Stop Dose Admin Acetaminophen 650 mg 08/14/25 21:36 08/16/25 20:21 Acetaminophen 325 Mg Tablet PO 650 mg Q4H PRN Administration Mild Pain (1-3) or Fever Dextrose 12.5 gm 08/15/25 01:52 Dextrose 50% 25 Gm/50 Ml Syringe IV PUSH PRN PRN Hypoglycemia Protocol Doxycycline Hyclate 100 mg 08/15/25 09:00 08/17/25 13:30 Doxycycline Hyclate 100 Mg Tablet PO 100 mg Q12HR STEPHANIE Administration Glucose 15 gm 08/15/25 01:52 Glucose Oral Gel 15 Gm Of Glucse In 37.5 Gm Tube PO PRN PRN Hypoglycemia Protocol Dextrose 1,000 mls @ 100 mls/hr 08/15/25 01:52 Dextrose 5% 1,000 Ml IVPB PRN PRN Hypoglycemia Protocol Radiology Results: ITS Impressions Head CT 08/14/25 20:25 IMPRESSION: No acute intracranial hemorrhage or extra axial fluid collections. All CT scans at this facility are performed using low dose modulation techniques as appropriate to perform exam including the following: automated exposure control; use of iterative reconstruction technique; adjustment of the mA and/or kV according to patient size (this includes techniques or standardized protocols for targeted exams where dose is matched to indication/reason for exam). ADDENDUM: 08/15/25 1203 ADDENDUM: I was asked to review the CT for any metallic foreign bodies in the orbits. No metallic foreign bodies identified in the orbits or throughout the remainder of the visualized head. Brain MRI 08/15/25 14:55 IMPRESSION: 1. Normal aging brain. No acute intracranial process or abnormally enhancing brain lesions. Thoracic Spine MRI 08/15/25 15:32 IMPRESSION: 1. Mild thoracic spondylosis with no central canal stenosis. 2. Indeterminate 2.5 cm mass in the right lower lobe. Recommend chest CT for further evaluation. ADDENDUM: 08/15/25 1612 ADDENDUM: Upon further review the suggestion of a mass in the right lower lobe seen on the axial T2-weighted images is without evident correlate on the coronal localizer images suggesting this may be artifactual. There is however also suggestion of indeterminate low T1 and high T2 hepatic masses seen on the coronal localizer images of the lumbar spine and would recommend further evaluation with CT of chest and abdomen, preferably with contrast. Lumbar Spine MRI 08/15/25 15:50 IMPRESSION: 1. Moderate lumbar spondylosis with suggestion of severe central canal stenosis at L3-L4 and L4-L5 assessment is however moderately limited by prominent motion artifact particularly on the axial sequences. Sacrum/Coccyx MRI 08/15/25 16:00 IMPRESSION: 1. Mild to moderate degenerative skeletal changes in the lower lumbar spine and at the bilateral hip and sacroiliac joints. Cervical Spine MRI 08/16/25 12:25 IMPRESSION: 1. Increased signal between the C5 and C6 spinous processes which was present but noted on the prior study. No other additional useful additional information provided by the current study over the prior study due to a greater degree of moderate to severe motion artifact on all sequences including multiple repeated sequences. Labs Labs: Laboratory Results - last 24 hr 08/15/25 08/17/25 08/17/25 19:32 03:38 12:24 WBC 11.8 H RBC 5.44 Hgb 17.0 Hct 51.5 MCV 94.7 MCH 31.3 MCHC 33.0 RDW 13.8 Plt Count 232 MPV 10.7 H Immature Gran % (Auto) 0.4 Neut % (Auto) 73.4 H Lymph % (Auto) 11.7 L Mcpherson % (Auto) 10.5 H Eos % (Auto) 3.5 Baso % (Auto) 0.5 Lymph # (Auto) 1.38 Mcpherson # (Auto) 1.2 H Eos # (Auto) 0.4 H Baso # (Auto) 0.1 Abs Immat Gran (auto) 0.05 H Absolute Neuts (auto) 8.7 H Absolute Nucleated RBC 0.000 Nucleated RBC % 0.0 PT 13.3 INR 1.0 APTT 28.0 CSF Source Csf CSF Appearance Clear CSF Color Colorless CSF RBC 145 H CSF Tot Nucleated Cells 1 CSF Glucose 58 CSF Total Protein A. phagocytophilum IgG Cancelled A. phagocytophilum IgM Cancelled A. phagocytophilum Cmmt Cancelled Babesia duncani WA1 IgG Cancelled Babesia microti IgG Ab Cancelled Babesia microti IgM Ab Cancelled Lyme Screen IgG & IgM Cancelled Lyme Disease IgG Ab Cancelled Lyme IgG 18 kDa Band Cancelled Lyme IgG 23 kDa Band Cancelled Lyme IgG 28 kDa Band Cancelled Lyme IgG 30 kDa Band Cancelled Lyme IgG 39 kDa Band Cancelled Lyme IgG 41 kDa Band Cancelled Lyme IgG 45 kDa Band Cancelled Lyme IgG 58 kDa Band Cancelled Lyme IgG 66 kDa Band Cancelled Lyme IgG 93 kDa Band Cancelled Lyme IgG Ab (Immblot) Cancelled Lyme Disease IgM Ab Cancelled Lyme IgM Ab (Immblot) Cancelled Lyme IgM 23 kDa Band Cancelled Lyme IgM 39 kDa Band Cancelled Lyme IgM 41 kDa Band Cancelled Lyme Total Antibody Cancelled Lyme Disease (PCR) Cancelled Lyme Disease Comment Cancelled Lyme Disease Interpret Cancelled Lyme Ab Comment Oth Sp Cancelled Ehrlichia IgG & IgM Cancelled E. chaffeensis IgG Ab Cancelled E. chaffeensis IgG Com Cancelled E. chaffeensis IgM Ab Cancelled E. chaffeensis IgM Intrp Cancelled E. chaffeensis Interp Cancelled E. chaffeensis Comment Cancelled Tick-borne Disease Ab Cancelled 10/25/25 12:24 WBC RBC Hgb Hct MCV MCH MCHC RDW Plt Count MPV Immature Gran % (Auto) Neut % (Auto) Lymph % (Auto) Mcpherson % (Auto) Eos % (Auto) Baso % (Auto) Lymph # (Auto) Mcpherson # (Auto) Eos # (Auto) Baso # (Auto) Abs Immat Gran (auto) Absolute Neuts (auto) Absolute Nucleated RBC Nucleated RBC % PT INR APTT CSF Source CSF Appearance CSF Color CSF RBC CSF Tot Nucleated Cells CSF Glucose Cancelled CSF Total Protein 95 H A. phagocytophilum IgG A. phagocytophilum IgM A. phagocytophilum Cmmt Babesia duncani WA1 IgG Babesia microti IgG Ab Babesia microti IgM Ab Lyme Screen IgG & IgM Lyme Disease IgG Ab Lyme IgG 18 kDa Band Lyme IgG 23 kDa Band Lyme IgG 28 kDa Band Lyme IgG 30 kDa Band Lyme IgG 39 kDa Band Lyme IgG 41 kDa Band Lyme IgG 45 kDa Band Lyme IgG 58 kDa Band Lyme IgG 66 kDa Band Lyme IgG 93 kDa Band Lyme IgG Ab (Immblot) Lyme Disease IgM Ab Lyme IgM Ab (Immblot) Lyme IgM 23 kDa Band Lyme IgM 39 kDa Band Lyme IgM 41 kDa Band Lyme Total Antibody Lyme Disease (PCR) Lyme Disease Comment Lyme Disease Interpret Lyme Ab Comment Oth Sp Ehrlichia IgG & IgM E. chaffeensis IgG Ab E. chaffeensis IgG Com E. chaffeensis IgM Ab E. chaffeensis IgM Intrp E. chaffeensis Interp E. chaffeensis Comment Tick-borne Disease Ab
[2025-08-17] MEDS: ACETAMINOPHEN 325 MG TABLET 650 MG PO (20:00)
--- NOTE | 2025-08-17 21:15 | PC.NURSE ---
Patient left via EMS at 2113. All belongings sent with patient
--- NOTE | 2025-08-17 21:29 | PC.NURSE ---
2119 This RN called [facility] [address] at [facility] and spoke with SILVERIO Newby. Report given. All questions answered. RN aware of patient ETA.
[2025-08-20 13:09] LABS: HSV-1 DNA, CSF Negative (Negative); HSV-2 DNA, CSF Negative (Negative)
[2025-08-20 14:08] LABS: Albumin 3.8 g/dL (3.9-4.9); Albumin, CSF 33 mg/dL (15-55); Enterovirus RT-PCR, CSF Negative (Negative); IgG, Quant, CSF 5.8 mg/dL (0.0-10.3); IgG, Syn Rate,CSF 4.3 mg/day (-9.9 TO +3.3); IgG/Alb Ratio, CSF 0.18 (0.00-0.25); Immunoglobulin G, Qn 1080 mg/dL (603-1613)
[2025-08-20 14:08] LABS: West Nile Virus, IgG Negative (Negative); West Nile Virus, IgM Negative (Negative)
[2025-08-21 06:08] LABS: JC Virus DNA, PCR (CSF) Negative (Negative)
[2025-08-22 16:08] LABS: B microti IgG <1:10 (Neg:<1:10); E. chaffeensis IgG Negative (Neg:<1:64); E. chaffeensis IgM Negative (Neg:<1:20)
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
[2025-08-27 07:08] LABS: Epstein-Barr Virus RT PCR, CSF Negative (Negative)
[2025-08-28 08:09] LABS: West Nile Virus Source CSF (.); West Nile Virus by PCR Not Detected (.)
== END 2025-08-17 21:14 | disposition short-term general hospital (02) | DRG 351 ==
LOC: ANHED 20:16 → ANHICU 22:15 → ANHIMU 08-19 13:23
PROVIDERS: Internal Medicine; Admitting Provider General Practice; Emergency Provider Student in an Organized Health Care Education/Training Program; Visit Provider General Practice
DX: M62.81 Muscle weakness (generalized) (principal); G25.71 Drug induced akathisia; R20.2 Paresthesia of skin; G95.9 Disease of spinal cord, unspecified; R32 Unspecified urinary incontinence; F17.210 Nicotine dependence, cigarettes, uncomplicated; S70.361A Insect bite (nonvenomous), right thigh, initial encounter; W57.XXXA Bitten or stung by nonvenomous insect and other nonvenomous arthropods, initial encounter
CPT/HCPCS: 36415; 62328; 70450; 70553; 72141; 72146; 72148; 72195; 80053; 82550; 82945; 83605; 83735; 84100; 84157; 85025; 85610; 85652; 85730; 86140; 86617; 86618; 86666; 86788; 86789; 87040; 87070; 87075; 87102; 87116; 87206; 87255; 87498; 87529; 87641; 87798; 88108; 89051; 93005; 99285; A9270; A9577; J0696; J2250; J3010; J7030